=== PATIENT | female | born 1960 | race Caucasian/White ===

== ENCOUNTER 2019-04-03 11:52 | Emergency (ER) | payer OTHER ==
[2019-04-03 11:58] VITALS: BMI 31.8
[2019-04-03] MEDS ORDERED: FAMOTIDINE 20 MG/50 ML IVPB 20 MG/50 ML MG IVPB ONE ×2 (14:31→15:06)
[2019-04-03] MEDS ORDERED: ACETAMINOPHEN 1000 MG/100 ML VIAL (NON FORMULARY) IVPB ONE (14:31)
[2019-04-03] MEDS ORDERED: SODIUM CHLORIDE 0.9% 1000 ML INFUS.BAG IV ONE (14:31)
--- NOTE | 2019-04-03 14:43 | PDOC ---
History of Present Illness - General Chief Complaint: Pain Stated Complaint: ABD PAIN Time Seen by Provider: 04/03/19 13:11 History Source: Patient Exam Limitations: No Limitations - History of Present Illness Initial Comments: 04/03/19 14:37 59F with a PMH of GERD, hypothyroidism, HTN, COPD, HLD, DM2 who presents to the ER with complaints of abdominal pain. The patient describes 4 days of constant, diffuse, atraumatic, without radiation to her back or chest, without exacerbating or alleviating factors. She denies nausea, vomiting, dysuria, hematuria, melena, hematochezia, fevers, and chills. Past History - Past Medical History Allergies/Adverse Reactions: Allergies Allergy/AdvReac Type Severity Reaction Status Date / Time No Known Allergies Allergy Verified 04/03/19 11:58 Home Medications: Ambulatory Orders Atorvastatin Ca [Lipitor] 20 mg PO HS 08/11/14 Baclofen 10 mg PO BID 08/11/14 Lansoprazole [Prevacid -] 30 mg PO DAILY 08/11/14 Naproxen [Naprosyn -] 500 mg PO BID 08/11/14 Ibuprofen [Motrin -] 600 mg PO Q8H #15 tablet 08/13/14 Levothyroxine [Synthroid -] 50 mcg PO DAILY@0700 #30 tablet 08/13/14 COPD: Yes Diabetes: Yes (diet controlled dm) GI Disorders: Yes (stomach ulcers) HTN: Yes Hypercholesterolemia: Yes Thyroid Disease: Yes (hypo) - Surgical History Cardiac Surgery: Yes (cardiac cath 06/13/12/leaky valve) - Immunization History Immunization Up to Date: No - Suicide/Smoking/Psychosocial Hx Smoking Status: No Smoking History: Never smoked Have you smoked in the past 12 months: No Number of Cigarettes Smoked Daily: 0 Information on smoking cessation initiated: No Hx Alcohol Use: No Drug/Substance Use Hx: No Substance Use Type: None Hx Substance Use Treatment: No Review of Systems - Review of Systems Able to Perform ROS?: Yes Comments:: 04/03/19 14:44 GENERAL/CONSTITUTIONAL: No fever or chills. No weakness. HEAD, EYES, EARS, NOSE AND THROAT: No change in vision. No ear pain or discharge. No sore throat. CARDIOVASCULAR: No chest pain, palpitations, or lightheadedness. RESPIRATORY: No cough, wheezing, shortness of breath, or hemoptysis. GASTROINTESTINAL: + for abdominal pain. No nausea, vomiting, diarrhea, or constipation. GENITOURINARY: No dysuria, frequency, hematuria, or change in urination. MUSCULOSKELETAL: No joint or muscle swelling or pain. No neck or back pain. SKIN: No rash or lesions. NEUROLOGIC: No headache, numbness, tingling, focal weakness, loss of consciousness, or change in strength/sensation. Is the patient limited Danish proficient: No *Physical Exam - Vital Signs Last Vital Signs Temp Pulse Resp BP Pulse Ox 98.4 F 60 17 127/67 100 04/03/19 11:56 04/03/19 11:56 04/03/19 11:56 04/03/19 11:56 04/03/19 11:56 - Physical Exam Comments: 04/03/19 14:44 GENERAL: Well developed, well nourished. Awake and alert. No acute distress. HEENT: Normocephalic, atraumatic. Hearing grossly normal. Moist mucous membranes. PERRLA, EOMI. No conjunctival pallor. Sclera are non-icteric. NECK: Supple. Full ROM. No JVD. CARDIOVASCULAR: Regular rate and rhythm. No murmurs, rubs, or gallops. PULMONARY: No evidence of respiratory distress. Lungs clear to auscultation bilaterally. No wheezing, rales or rhonchi. ABDOMINAL: Soft. Diffusely tender with guarding in LUQ. Non-distended. GENITOURINARY: No CVA tenderness bilaterally. MUSCULOSKELETAL: Normal range of motion at all joints. No bony deformities or tenderness. EXTREMITIES: No cyanosis. No clubbing. No edema. No calf tenderness or swelling. SKIN: Warm and dry. Normal capillary refill. No rashes. No jaundice. NEUROLOGICAL: Alert, awake, appropriate. Cranial nerves 2-12 intact. Normal speech. Gait is normal without ataxia. PSYCHIATRIC: Cooperative. Good eye contact. Appropriate mood and affect. ED Treatment Course - LABORATORY CBC & Chemistry Diagram: 04/03/19 15:00 04/03/19 15:00 - RADIOLOGY Radiology Studies Ordered: Category Date Time Status ABDOMEN & PELVIS CT WITH CONTR [CT] Stat CT Scan 04/03/19 14:27 Ordered CHEST PA & LAT [RAD] Stat Radiology 04/03/19 14:25 Ordered Medical Decision Making - Medical Decision Making 04/03/19 14:45 59F with MMP presents with 4 days of abdominal pain with guarding on exam. Will obtain labs, EKG, CXR, and CTAP. Giving symptomatic treatment for possible GERD as pt states "this feels like my GERD but much worse". Pt having normal BM's and last BM this morning. Pt has hx of appendectomy and cholecystectomy. Well appearing otherwise. Pending labs and imaging. 04/03/19 19:28 CTAP and labs WNL and shows no acute pathology. Repeat abdominal exam unremarkable. Will d/c with PCP f/u. *DC/Admit/Observation/Transfer Diagnosis at time of Disposition: Abdominal pain Qualifiers: Abdominal location: generalized Qualified Code(s): R10.84 - Generalized abdominal pain - Discharge Dispostion Disposition: HOME Condition at time of disposition: Stable Decision to Admit order: No - Referrals Referrals: Alka Gomez MD [Primary Care Provider] - - Patient Instructions Printed Discharge Instructions: DI for Abdominal Pain-Adult Additional Instructions: Your ER visit is not complete until your follow up with your primary care physician. Please follow up with your primary care physician in 1-2 days. Please return to the ER if you have any signs or symptoms of chest pain, shortness of breath, uncontrollable fever, chills, nausea, vomiting, numbness, tingling, or weakness in any part of your body, changes in vision, or slurred speech. Please take your medications as prescribed. Please return to the ER if symptoms persist, worsen, or new symptoms arise. - Post Discharge Activity
[2019-04-03] MEDS ORDERED: ACETAMINOPHEN INJECTION 100 ML IVPB ONE (15:06)
[2019-04-03 15:21] LABS: BASO % 1.1 % (0-2.0); EOS % 3.9 % (0-4.5); HEMOGLOBIN 11.8 GM/dL (10.7-15.3); LYMPH % 34.2 % (8-40); MCH 30.6 pg (25.7-33.7); MCHC 33.8 g/dl (32.0-36.0); MEAN CELL VOLUME 90.4 fl (80-96); MEAN PLT VOLUME 8.2 fl (7.5-11.1); MONO % 7.9 % (3.8-10.2); NEUT % 52.9 % (42.8-82.8); PLATELET COUNT 305 K/MM3 (134-434); RBC 3.87 M/mm3 (3.60-5.2); WHITE BLOOD COUNT 5.9 K/mm3 (4.0-10.0)
[2019-04-03 15:23] LABS: INR 0.95 (0.83-1.09); PROTHROMBIN TIME (PATIENT) 11.2 SEC (9.7-13.0)
[2019-04-03 15:43] LABS: ALK PHOS 67 U/L (45-117); ANION GAP 6 MMOL/L (8-16); BILIRUBIN,TOTAL 0.4 mg/dL (0.2-1); BLOOD UREA NITROGEN 15.4 mg/dL (7-18); CALCIUM 9.3 mg/dL (8.5-10.1); CHLORIDE 110 mmol/L (98-107); CO2 26 mmol/L (21-32); CREATININE 0.9 mg/dL (0.55-1.3); GLUCOSE,RANDOM 83 mg/dL (74-106); LIPASE 169 U/L (73-393); POTASSIUM 4.5 mmol/L (3.5-5.1); SGOT/AST 25 U/L (15-37); SGPT/ALT 23 U/L (13-61); SODIUM 142 mmol/L (136-145); TOT PROT 7.4 g/dl (6.4-8.2)
[2019-04-03 16:18] LABS: URINE APPEARANCE CLEAR; URINE BILIRUBIN NEGATIVE (NEGATIVE); URINE COLOR YELLOW; URINE GLUCOSE (UA) NEGATIVE (NEGATIVE); URINE KETONE NEGATIVE (NEGATIVE); URINE LEUK ESTERASE NEGATIVE (NEGATIVE); URINE NITRITE NEGATIVE (NEGATIVE); URINE PROTEIN NEGATIVE (NEGATIVE); URINE UROBILINOGEN 0.2 mg/dL (0.2-1.0)
--- NOTE | 2019-04-03 16:39 | PDOC ---
Documentation entered by Gisele Martinez SCRIBE, acting as scribe for Joann Mullins MD. Joann Mullins MD: This documentation has been prepared by the Juan valdes Brenda, SCRIBE, under my direction and personally reviewed by me in its entirety. I confirm that the documentation accurately reflects all work, treatment, procedures, and medical decision making performed by me. Attending Attestation - Resident Resident Name: CheryleKoko - ED Attending Attestation I have performed the following: I have examined & evaluated the patient, The case was reviewed & discussed with the resident, I agree w/resident's findings & plan, Exceptions are as noted - HPI HPI: 04/03/19 16:03 The patient is a 59 year old female, with a significant PMH of GERD, hypothyroidism, HTN, COPD, HLD and DM2, who presents to the emergency department with 4 days of constant diffuse abdominal pain. The patient reports not alleviating or aggravating factors, without any radiation. She denies nausea, vomiting, dysuria, hematuria, melena, hematochezia, fevers, and chills. Denies fever, chills, nausea, vomiting, diarrhea and constipation. Allergies: NKA Social history: Non smoker PCP: Dr. Laura Gomez - Physicial Exam PE: 04/03/19 16:03 GENERAL: Awake, alert, and fully oriented, in no acute distress ABDOMEN: Soft, nontender, normoactive bowel sounds. No guarding, no rebound. No masses - Medical Decision Making 04/03/19 16:36 Pt presents to the ED complaining of diffuse abdominal pain. ABdomen is non tender on my exam, but given patients age, will check CT abdomen pelvis to rule out diverticulitis, abscess or other intraabdominal pathology.
[2019-04-03 18:57] VITALS: BP 140/99; PULSE 50; TEMP 98.8
--- NOTE | 2019-04-04 12:07 | EKG ---
Test Reason : Blood Pressure : / mmHG Vent. Rate : 050 BPM Atrial Rate : 050 BPM P-R Int : 190 ms QRS Dur : 090 ms QT Int : 486 ms P-R-T Axes : 037 033 059 degrees QTc Int : 443 ms SINUS BRADYCARDIA OTHERWISE NORMAL ECG WHEN COMPARED WITH ECG OF 11-AUG-2014 22:21, VENT. RATE HAS DECREASED BY 25 BPM RSR' PATTERN IN V1 IS NO LONGER PRESENT Confirmed by Jordi Perez ([id number]) on 04/04/2019 12:07:17 PM Referred By: Confirmed By:Jordi Perez
== END 2019-04-03 19:47 | disposition home or self-care (01) ==
LOC: JER 11:52
PROC: 3E033GC Introduction of Other Therapeutic Substance into Peripheral Vein, Percutaneous Approach (ICD-10-PCS; principal; 2019-04-03)
PROC: 3E033NZ Introduction of Analgesics, Hypnotics, Sedatives into Peripheral Vein, Percutaneous Approach (ICD-10-PCS; 2019-04-03)
DX: R10.84 Generalized abdominal pain (principal); I10 Essential (primary) hypertension; E11.9 Type 2 diabetes mellitus without complications; Z79.84 Long term (current) use of oral hypoglycemic drugs; E03.9 Hypothyroidism, unspecified; J44.9 Chronic obstructive pulmonary disease, unspecified; E78.5 Hyperlipidemia, unspecified
CPT/HCPCS: 36415; 74177-TC; 80053; 81003; 82550; 82553; 83690; 84484; 85025; 85610; 87086; 87186; 93005; 93010; 96365; 96375; 99282-25; J0131; J7030

== ENCOUNTER 2019-06-28 11:13 | Inpatient (IN) | payer OTHER ==
[2019-06-28] MEDS ORDERED: NITROGLYCERIN SUBLINGUAL 1/150 0.4 MG TAB SL ONE (12:02)
[2019-06-28] MEDS ORDERED: ASPIRIN 81 MG CHEWABLE TABLETS PO ONE (12:02)
[2019-06-28] MEDS ORDERED: ASPIRIN 81 MG CHEWABLE TABLETS ONE ×2 (12:11→17:15)
[2019-06-28] MEDS ORDERED: NITROGLYCERIN SUBLINGUAL 1/150 0.4 MG TAB ONE (12:12)
[2019-06-28 12:36] LABS: BASO % 0.9 % (0-2.0); EOS % 7.3 % (0-4.5); HEMATOCRIT 33.1 % (32.4-45.2); HEMOGLOBIN 11.1 GM/dL (10.7-15.3); LYMPH % 35.2 % (8-40); MCH 30.1 pg (25.7-33.7); MCHC 33.5 g/dl (32.0-36.0); MEAN CELL VOLUME 89.8 fl (80-96); MONO % 10.6 % (3.8-10.2); PLATELET COUNT 271 K/MM3 (134-434); RBC 3.69 M/mm3 (3.60-5.2); RDW 12.8 % (11.6-15.6); WHITE BLOOD COUNT 4.6 K/mm3 (4.0-10.0)
[2019-06-28 13:07] LABS: ALBUMIN 3.8 g/dl (3.4-5.0); BILIRUBIN,TOTAL 0.4 mg/dL (0.2-1); BLOOD UREA NITROGEN 19.1 mg/dL (7-18); CALCIUM 8.9 mg/dL (8.5-10.1); CREATININE 1.2 mg/dL (0.55-1.3); POTASSIUM 4.1 mmol/L (3.5-5.1); TOT PROT 6.7 g/dl (6.4-8.2)
[2019-06-28] MEDS ORDERED: NITROGLYCERIN 2% OINTMENT - 1GM PACKET TD ONE ×2 (14:19→14:24)
[2019-06-28] MEDS ORDERED: ACETAMINOPHEN 1000 MG/100 ML VIAL (NON FORMULARY) IVPB ONE (14:19)
[2019-06-28] MEDS ORDERED: ACETAMINOPHEN INJECTION 100 ML IVPB ONE (14:24)
--- NOTE | 2019-06-28 14:31 | EKG ---
Test Reason : Blood Pressure : / mmHG Vent. Rate : 071 BPM Atrial Rate : 071 BPM P-R Int : 180 ms QRS Dur : 084 ms QT Int : 412 ms P-R-T Axes : 043 033 073 degrees QTc Int : 447 ms NORMAL SINUS RHYTHM T WAVE ABNORMALITY, CONSIDER ANTERIOR ISCHEMIA ABNORMAL ECG WHEN COMPARED WITH ECG OF 03-APR-2019 14:58, T WAVE INVERSION NOW EVIDENT IN ANTERIOR LEADS Confirmed by SHANTEL BROWN, PATI ([id number]) on 06/28/2019 2:31:33 PM Referred By: Confirmed By:PATI FUNES MD
--- NOTE | 2019-06-28 15:43 | PDOC ---
Documentation entered by Manda Vela SCRIBE, acting as scribe for Twan Guerrero MD. Twan Guerrero MD: This documentation has been prepared by the Dane valdes Sammi, SCRIBE, under my direction and personally reviewed by me in its entirety. I confirm that the documentation accurately reflects all work, treatment, procedures, and medical decision making performed by me. History of Present Illness - General Chief Complaint: Chest Pain Stated Complaint: CHEST PAIN Time Seen by Provider: 06/28/19 11:50 - History of Present Illness Initial Comments: 06/28/19 12:30 The patient is a 59 year old female who presents for evaluation of 3 days of non pleuritic chest pain, tightness with mild stabbing in character, constant, 07/06, with associated with minimal SOB, dizziness, and chronic bilateral lower extremity pain. Denies exacerbating or alleviating factors. Medical history: ND (on aspirin), hypothyroidism PCP: Alka Gomez 06/28/19 15:25 Past History - Past Medical History Allergies/Adverse Reactions: Allergies Allergy/AdvReac Type Severity Reaction Status Date / Time No Known Allergies Allergy Verified 06/28/19 11:22 Home Medications: Ambulatory Orders Atorvastatin Ca [Lipitor] 20 mg PO HS 08/11/14 Lansoprazole [Prevacid -] 30 mg PO DAILY 08/11/14 Levothyroxine [Synthroid -] 200 mcg PO DAILY@0700 06/28/19 COPD: Yes Diabetes: Yes (diet controlled dm) GI Disorders: Yes (stomach ulcers) HTN: Yes Hypercholesterolemia: Yes Thyroid Disease: Yes (hypo) - Surgical History Cardiac Surgery: Yes (cardiac cath 06/13/12/leaky valve) - Immunization History Immunization Up to Date: No - Psycho Social/Smoking Cessation Hx Smoking Status: No Smoking History: Never smoked Have you smoked in the past 12 months: No Number of Cigarettes Smoked Daily: 0 Information on smoking cessation initiated: No Hx Alcohol Use: No Drug/Substance Use Hx: No Substance Use Type: None Hx Substance Use Treatment: No Review of Systems - Review of Systems Comments:: 06/28/19 12:31 CONSTITUTIONAL: +Dizziness. No fever, no chills, no fatigue EYES: No visual changes ENT: No ear pain, no sore throat CARDIOVASCULAR: + pleuritic chest pain, no palpitations RESPIRATORY: +SOB. No cough. GI: No abdominal pain, no nausea, no vomiting, no constipation, no diarrhea GENITOURINARY: No dysuria, no frequency, no hematuria MUSKULOSKELETAL: +bilateral lower extremity pain. No backpain. SKIN: No rash NEURO: No headache *Physical Exam - Vital Signs Last Vital Signs Temp Pulse Resp BP Pulse Ox 98.4 F 53 L 13 128/67 97 06/28/19 11:15 06/28/19 14:30 06/28/19 14:30 06/28/19 14:30 06/28/19 14:30 - Physical Exam Comments: 06/28/19 15:00 CONSTITUTIONAL: Well-appearing; well-nourished; in no apparent distress HEAD: Normocephalic; atraumatic NECK: Supple; non-tender; no cervical lymphadenopathy CARD: Normal S1, S2; no murmurs, rubs, or gallops RESP: Normal chest excursion with respiration; breath sounds clear and equal bilaterally; no wheezes, rhonchi, or rales ABD: Soft, non-distended; non-tender; no palpable organomegaly, no palpable hernias EXT: Normal ROM in all four extremities; non-tender to palpation; distal pulses intact SKIN: Warm, dry, no rash NEURO: No focal neurological deficiencies. Heart Score/ECG Review - History History: Moderately suspicious - Electrocardiogram EKG: Non specific repolarization disturbance - Age Age: 45-65 - Risk Factors Risk Factors Heart Score: Yes Hx Hypercholesterolemia, Yes Hx Obesity Based on the list above the patient has:: 1-2 risk factors - Troponin Troponin: </= normal limit - Score Heart Score - Total: 4 ED Treatment Course - LABORATORY CBC & Chemistry Diagram: 06/28/19 12:25 06/28/19 12:25 - ADDITIONAL ORDERS Additional order review: Laboratory Results 06/28/19 06/28/19 06/28/19 12:25 12:25 12:25 D-Dimer 400 Sodium 142 Potassium 4.1 Chloride 111 H Carbon Dioxide 24 Anion Gap 7 L BUN 19.1 H Creatinine 1.2 Est GFR (CKD-EPI)AfAm 56.89 Est GFR (CKD-EPI)NonAf 49.08 Random Glucose 90 Calcium 8.9 Total Bilirubin 0.4 AST 10 L ALT 15 Alkaline Phosphatase 67 Creatine Kinase 247 H Creatine Kinase Index No Result Required. CK-MB (CK-2) < 1.0 Troponin I < 0.02 Total Protein 6.7 Albumin 3.8 06/28/19 12:25 RBC 3.69 MCV 89.8 MCHC 33.5 RDW 12.8 MPV 8.0 Neutrophils % 46.0 Lymphocytes % 35.2 Monocytes % 10.6 H Eosinophils % 7.3 H D Basophils % 0.9 - RADIOLOGY Radiology Studies Ordered: Category Date Time Status CHEST X-RAY PORTABLE* [RAD] Stat Radiology 06/28/19 12:02 Completed - Medications Given in the ED: ED Medications Discontinued Medications Generic Name Dose Route Start Last Admin Trade Name Freq PRN Reason Stop Dose Admin Acetaminophen 1,000 mg 06/28/19 14:19 06/28/19 14:30 Ofirmev Injection - IVPB 06/28/19 14:20 1,000 mg ONCE ONE Administration Aspirin 162 mg 06/28/19 12:02 06/28/19 12:16 Asa - PO 06/28/19 12:03 162 mg ONCE ONE Administration Nitroglycerin 0.4 mg 06/28/19 12:02 06/28/19 12:16 Nitrostat - SL 06/28/19 12:03 0.4 mg ONCE ONE Administration Nitroglycerin 1 inch 06/28/19 14:19 06/28/19 14:30 Nitro-Bid 2% Paste - TD 06/28/19 14:20 1 inch ONCE ONE Administration Medical Decision Making - Medical Decision Making 06/28/19 15:42 Patient is a 59-year-old female with history of hypercholesterolemia and hypothyroidism who presents to the ER with constant left-sided nonpleuritic chest pain for the past 3 days with weakness and dizziness. Patient's vital signs are noted to be normal and stable. Initial EKG shows diffuse T wave inversions in precordial leads when compared to previous EKG from March 2019. Repeat EKG shows pseudonormalization of T waves in V4 and V5. Patient's chest pain was minimally improved by sublingual nitroglycerin. Will administer transdermal nitroglycerin and IV acetaminophen. CPK is noted to be elevated however troponin is negative at this time. Patient's heart score is noted to be 4. Patient received p.o. aspirin in addition to nitroglycerin. Will admit to telemetry for further evaluation. Discharge - Discharge Information Problems reviewed: Yes Clinical Impression/Diagnosis: Acute coronary syndrome Condition: Fair - Admission Yes - Follow up/Referral Referrals: Alka Gomez MD [Primary Care Provider] - - Patient Discharge Instructions - Post Discharge Activity
[2019-06-28] MEDS: PANTOPRAZOLE 40 MG TABLET (FP) PO SCH (17:15)
[2019-06-28] MEDS: ASPIRIN COATED 81 MG TABLET.EC PO SCH (17:15)
[2019-06-28] MEDS ORDERED: PANTOPRAZOLE 40 MG TABLET (FP) ONE (17:16)
--- NOTE | 2019-06-28 17:20 | PN ---
Teaching Attending Note Name of Resident: Lisa Husain ATTENDING PHYSICIAN STATEMENT I saw and evaluated the patient. I reviewed the resident's note and discussed the case with the resident. I agree with the resident's findings and plan as documented. SUBJECTIVE: CC: CP HPI : 59 y/o lady with h/o HTN ( not on meds), hypothyroidism, thyroid sx , DM ( off meds ), reported CO 10 years ago, no stents , HLP ( off meds ) , who presented with CP x 3 days . CP is retrosternal, continuous and 8/10 in severity. Worse with breathing, exertion and any activity and even with bending down. hard to describe ( pressure vs sharp). with exertion her CP is associated with SOB and dizziness. last stress test and Echo were 1 months ago at her card office ( she thinks dr. Brambila). she admits to taking aspirin but she stopped statin on her own . Not on BP meds . No recent travel or immobilization or sx OBJECTIVE: NAd , MMM. no LAP in neck . scar on lower neck Cv : RRr, 2/6 Sm at LLSB Lungs: CTAB Abd: soft, NT, Nd , NLBS Ext : No edema or erythema , no tenderness neuro : EOMI, round equal pupils, no facial droop. tongue at mid line. strength 5/5 in upper and lower extremities proximally and distally ASSESSMENT AND PLAN: 1- CP : unclear etiology, doubt ACS as it is continuous for 3 days with nL trop. EKG though with new TWI in septal leads. in DDx is GERD PE is not suspected as WEELS scor is 0,D dimer < 500, and clinical suspicion is low ( no travel, old RBBB, no S1T3Q3, no tachycardia or hypoxia). - repeat trops - tele - card consult - PPI - will obtain stressa nd echo fromout pt card ( 1 months ago) - cont ASA - order lipid panel for am 2- h/o hypothyroidism: cont her synthroid 3- h/o HLP: chec lipid panel. not on any meds DVT PX : heaprin
--- NOTE | 2019-06-28 17:29 | HP ---
CHIEF COMPLAINT: Chest Pain PCP: Dr. oGmez Epic Application Coordinator: Dr. Brambila HISTORY OF PRESENT ILLNESS: Ms. Ta is a 59 year old lady with a reported pmhx of gastric ulcer, hypothyroidism, and OR (~10 years ago, denies being placed on any medication, denies cath, denies stent placement) who presents to the ED with 3 days of chest pains. The patient states the pain is always present but worse with exertion and inspiration. It is also associated with postural dizziness. The pain has been ongoing for 3 days and the patient reports nothing makes it better. The patient reports that she had a stress test and echo with her program management manager last month and that both were normal. The patient denies and abdominal pain, nausea, vomiting, dysuria, sensory changes, or changes in hearing ER course was notable for: (1) EKG with new TWI in leads V2,V3,V4 compared to old EKG in March. 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 (2) nitro paste admin with minimal relief (3) trop - (x1) Recent Travel: denies PAST MEDICAL HISTORY: Hypothyroidism, gastric ulcer (per chart review patient also has HTN, HLD, COPD, and DM however patient denies carrying these diagnoses and doesn't take any medicines for them) PAST SURGICAL HISTORY: appendectomy and cholecystectomy ~3 years ago, "thyroid surgery"- patient did not elaborate Social History: Smoking: denies Alcohol: denies Drugs: denies Allergies No Known Allergies Allergy (Verified 06/28/19 11:22) HOME MEDICATIONS: Home Medications Medication Instructions Recorded Atorvastatin Ca [Lipitor] 20 mg PO HS 08/11/14 Lansoprazole [Prevacid -] 30 mg PO DAILY 08/11/14 Levothyroxine [Synthroid -] 200 mcg PO DAILY@0700 06/28/19 Pantoprazole Sodium 40 mg PO BID 06/28/19 Spironolactone 12.5 mg PO AM 06/28/19 REVIEW OF SYSTEMS CONSTITUTIONAL: Absent: fever, chills, diaphoresis, generalized weakness, malaise, loss of appetite, weight change HEENT: change in vision (blacking out) associated with dizzy episodes Absent: rhinorrhea, nasal congestion, throat pain, throat swelling, difficulty swallowing, mouth swelling, ear pain, eye pain, visual changes CARDIOVASCULAR: chest pain, lightheadedness Absent: syncope, palpitations, irregular heart rate, peripheral edema RESPIRATORY: , dyspnea with exertion, Absent: cough, shortness of breathorthopnea, wheezing, stridor, hemoptysis GASTROINTESTINAL: Absent: abdominal pain, abdominal distension, nausea, vomiting, diarrhea, constipation, melena, hematochezia GENITOURINARY: Absent: dysuria, frequency, urgency, hesitancy, hematuria, flank pain, genital pain MUSCULOSKELETAL: Absent: myalgia, arthralgia, joint swelling, back pain, neck pain SKIN: Absent: rash, itching, pallor HEMATOLOGIC/IMMUNOLOGIC: Absent: easy bleeding, easy bruising, lymphadenopathy, frequent infections ENDOCRINE: Absent: unexplained weight gain, unexplained weight loss, heat intolerance, cold intolerance NEUROLOGIC: dizziness, Absent: headache, focal weakness or paresthesias, unsteady gait, seizure, mental status changes, bladder or bowel incontinence PSYCHIATRIC: Absent: anxiety, depression, suicidal or homicidal ideation, hallucinations. PHYSICAL EXAMINATION Vital Signs - 24 hr 06/28/19 06/28/19 06/28/19 11:15 11:45 12:16 Temperature 98.4 F Pulse Rate 76 Pulse Rate [ 62 Apical] Respiratory 18 13 Rate Blood Pressure 110/62 Blood Pressure 122/64 [Left Arm] O2 Sat by Pulse 96 98 96 Oximetry (%) 06/28/19 06/28/19 06/28/19 12:28 12:56 14:30 Temperature Pulse Rate Pulse Rate [ 57 L 61 53 L Apical] Respiratory 17 17 13 Rate Blood Pressure Blood Pressure 109/68 107/70 128/67 [Left Arm] O2 Sat by Pulse 99 99 97 Oximetry (%) GENERAL: Awake, alert, and fully oriented, in no acute distress. HEAD: Normal with no signs of trauma. EYES: Pupils equal, round and reactive to light, extraocular movements intact, sclera anicteric, conjunctiva clear. No lid lag. EARS, NOSE, THROAT: Ears normal, nares patent, oropharynx clear without exudates. Moist mucous membranes. NECK: Normal range of motion, supple without lymphadenopathy, JVD, or masses. LUNGS: Breath sounds equal, clear to auscultation bilaterally. No wheezes, and no crackles. No accessory muscle use. HEART: Bradycardic and regular rhythm, normal S1 and S2 without murmur, rub or gallop. ABDOMEN: Soft, tender to palpation in RLQ and suprapubic areas, not distended, normoactive bowel sounds, no guarding, no rebound, no masses. MUSCULOSKELETAL: Normal range of motion at all joints. No bony deformities or tenderness. No CVA tenderness. UPPER EXTREMITIES: 2+ pulses, warm, well-perfused. No cyanosis. No clubbing. No peripheral edema. 1+ brachial and radial reflexes bilaterally LOWER EXTREMITIES: 2+ pulses, warm, well-perfused. No calf tenderness. No peripheral edema. 1+ patellar and achilles reflexes bilaterally NEUROLOGICAL: Cranial nerves II-XII intact. Normal speech. PSYCHIATRIC: Cooperative. Good eye contact. Appropriate mood and affect. SKIN: Warm, dry, normal turgor, no rashes or lesions noted, normal capillary refill. Laboratory Results - last 24 hr 06/28/19 06/28/19 06/28/19 12:25 12:25 12:25 WBC 4.6 RBC 3.69 Hgb 11.1 Hct 33.1 MCV 89.8 MCH 30.1 MCHC 33.5 RDW 12.8 Plt Count 271 MPV 8.0 Absolute Neuts (auto) 2.1 Neutrophils % 46.0 Lymphocytes % 35.2 Monocytes % 10.6 H Eosinophils % 7.3 H D Basophils % 0.9 Nucleated RBC % 0 D-Dimer Sodium 142 Potassium 4.1 Chloride 111 H Carbon Dioxide 24 Anion Gap 7 L BUN 19.1 H Creatinine 1.2 Est GFR (CKD-EPI)AfAm 56.89 Est GFR (CKD-EPI)NonAf 49.08 Random Glucose 90 Calcium 8.9 Total Bilirubin 0.4 AST 10 L ALT 15 Alkaline Phosphatase 67 Creatine Kinase 247 H Creatine Kinase Index No Result Required. CK-MB (CK-2) < 1.0 Troponin I < 0.02 Total Protein 6.7 Albumin 3.8 06/28/19 12:25 WBC RBC Hgb Hct MCV MCH MCHC RDW Plt Count MPV Absolute Neuts (auto) Neutrophils % Lymphocytes % Monocytes % Eosinophils % Basophils % Nucleated RBC % D-Dimer 400 Sodium Potassium Chloride Carbon Dioxide Anion Gap BUN Creatinine Est GFR (CKD-EPI)AfAm Est GFR (CKD-EPI)NonAf Random Glucose Calcium Total Bilirubin AST ALT Alkaline Phosphatase Creatine Kinase Creatine Kinase Index CK-MB (CK-2) Troponin I Total Protein Albumin ASSESSMENT/PLAN: Ms. Ta is a 59 year old lady with a reported pmhx of gastric ulcer, hypothyroidism, and OR (~10 years ago, denies being placed on any medication, denies cath, denies stent placement) who presents to the ED with 3 days of chest pains. # Atypical Chest Pain - differential includes pain from GERD and PE. PE is unlikely given that patient has a Wells score of zero, no recent travel, no reasons for hypercoaguable state, not tachycardic, although patient does have RBB on EKG this is an old finding. - Trend troponins - lipid panel - F/u Dr. Brambila about recent stress test/ echo results - Cardiology consult, Dr. Brambila, appreciate recommendations - NPO after midnight incase patient needs new stress test tomorrow - Cont ASA 81mg daily #GERD - Protonix 40 daily #Hypothyroidism - Levothyroxine 200mcg daily #DM- per chart review patient carries this diagnosis but patient denies. BG 90 on admission - BGM ACHS with SSI - Will obtain A1C, and adjust management depending on results # FEN - PO fluids - Replete lytes prn - fat/ chol restricted diet, NPO at midnight # Dispo: admit to tele to monitor overnight, follow up with cardiology in AM Visit type - Emergency Visit Emergency Visit: Yes ED Registration Date: 06/28/19 Care time: The patient presented to the Emergency Department on the above date and was hospitalized for further evaluation of their emergent condition. - New Patient This patient is new to me today: Yes Date on this admission: 06/28/19 - Critical Care Critical Care patient: No ATTENDING PHYSICIAN STATEMENT I saw and evaluated the patient. I reviewed the resident's note and discussed the case with the resident. I agree with the resident's findings and plan as documented. SUBJECTIVE: OBJECTIVE: ASSESSMENT AND PLAN:
[2019-06-28] MEDS ORDERED: HEPARIN NA (PORCINE) 5,000 UNITS/ML 1ML VIAL ONE (22:29)
[2019-06-28] MEDS: HEPARIN NA (PORCINE) 5,000 UNITS/ML 1ML VIAL SQ SCH (22:40)
[2019-06-28] MEDS: INSULIN SLIDING SCALE (NOVOLOG) 1 VIAL SQ SCH (22:41)
[2019-06-29 00:17] VITALS: BMI 31.1
[2019-06-29 06:13] LABS: BASO % 0.8 % (0-2.0); EOS % 7.2 % (0-4.5); HEMATOCRIT 32.5 % (32.4-45.2); HEMOGLOBIN 11.2 GM/dL (10.7-15.3); LYMPH % 40.5 % (8-40); MCH 30.9 pg (25.7-33.7); MCHC 34.4 g/dl (32.0-36.0); MEAN CELL VOLUME 89.9 fl (80-96); MEAN PLT VOLUME 7.9 fl (7.5-11.1); MONO % 9.7 % (3.8-10.2); NEUT % 41.8 % (42.8-82.8); PLATELET COUNT 259 K/MM3 (134-434); RBC 3.61 M/mm3 (3.60-5.2); RDW 12.9 % (11.6-15.6); WHITE BLOOD COUNT 5.1 K/mm3 (4.0-10.0)
[2019-06-29] MEDS: INSULIN SLIDING SCALE (NOVOLOG) 1 VIAL SQ SCH ×3 (06:40→17:09)
[2019-06-29 06:41] LABS: PHOSPHOROUS 3.9 mg/dL (2.5-4.9)
[2019-06-29] MEDS: HEPARIN NA (PORCINE) 5,000 UNITS/ML 1ML VIAL SQ SCH ×2 (06:41→13:01)
[2019-06-29] MEDS ORDERED: LEVOTHYROXINE NA 100 MCG TABLET (FP) PO SCH (07:00)
--- NOTE | 2019-06-29 10:04 | CON.CARD ---
Consult Consult Specialty:: cardio - History of Present Illness Chief Complaint: cp History of Present Illness: 59 F here with CP. pt has chronic h/o REYEZ with assctd chest tightness. presented originally to hospital in [place] for this few years ago--nuclear stress test then normal. more recently incr in sx's for which she's been seeing me in office. echo unrevealing--possibly elevated LA pressure stress echo unrevealing. also with very hi TSH that has not improved as of 1-2 wks ago--dr hill incr 'd synthroid dose last week. PFTs were unremarkable recently. given trial of spironolactone 12.5 qd for ? early diast CHF as cause of her REYEZ- -started about 1 week ago states that the past several days her REYEZ and assctd cp have worsened. typically occurring with activity--usually (not always) resolves quickly with rest. more severe CP (same quality) on DOA so came to ER. assctd dizziness. no cp or sob here so far. felt dizzy when oob to walk to bathroom earlier. PMH: HPL - Past Medical History Cardio/Vascular: Yes: HTN, Hyperlipdemia Pulmonary: Yes: COPD Endocrine: Yes: Diabetes Mellitus - Alcohol/Substance Use Hx Alcohol Use: No History of Substance Use: reports: None - Smoking History Smoking history: Never smoked Have you smoked in the past 12 months: No Aproximately how many cigarettes per day: 0 - Social History ADL: Independent History of Recent Travel: No Home Medications - Allergies Allergies/Adverse Reactions: Allergies Allergy/AdvReac Type Severity Reaction Status Date / Time No Known Allergies Allergy Verified 06/28/19 11:22 - Home Medications Home Medications: Ambulatory Orders Lansoprazole [Prevacid -] 30 mg PO DAILY 08/11/14 Aspirin [Aspirin EC] 81 mg PO DAILY 06/28/19 Levothyroxine [Synthroid -] 200 mcg PO DAILY@0700 06/28/19 Family Medical History Family Hx Cardiac Disorders: Father Review of Systems - Review of Systems Constitutional: denies: Chills, Fever Eyes: denies: Eye Pain HENT: denies: Nasal Congestion Neck: denies: Stiffness Cardiovascular: denies: Palpitations Respiratory: denies: Orthopnea, PND Gastrointestinal: denies: Diarrhea, Rectal Bleeding Genitourinary: denies: Burning, Hematuria Musculoskeletal: denies: Muscle Pain Integumentary: denies: Rash Neurological: denies: Numbness, Seizure, Syncope Endocrine: denies: Excessive Sweating Hematology/Lymphatic: denies: Excessive Bleeding Vital Signs: Vital Signs Temperature 98.5 F 06/29/19 04:00 Pulse Rate 46 L 06/29/19 04:00 Respiratory Rate 20 06/29/19 04:00 Blood Pressure 110/51 L 06/29/19 04:00 O2 Sat by Pulse Oximetry (%) 98 06/29/19 00:22 Constitutional: Yes: Well Nourished, No Distress Eyes: No: Sclera Icterus HENT: No: Nasal Congestion Neck: No: Decreased ROM Respiratory: Yes: CTA Bilaterally. No: Accessory Muscle Use Gastrointestinal: Yes: Normal Bowel Sounds. No: Distention, Hepatomegaly, Palpable Mass, Tenderness Cardiovascular: Yes: Regular Rate and Rhythm JVD: No Carotid Bruit: No PMI: Non-Displaced Heart Sounds: Yes: S1, S2. No: Gallop Murmur: No: Systolic Murmur, Diastolic Murmur Musculoskeletal: Yes: Other (No kyphosis) Extremities: No: Cool, Cyanosis Edema: No Peripheral Pulses: 2+ Left Carotid, 2+ Right Carotid, 2+ Left Doralis Pedis, 2+ Right Dorsalis Pedis Integumentary: No: Jaundice Neurological: Yes: Alert, Oriented (x3) Psychiatric: No: Agitated - Other Data Labs, Other Data: CBC, BMP 06/29/19 05:45 06/28/19 12:25 Troponin, BNP 06/28/19 06/28/19 12:25 18:20 Troponin I < 0.02 < 0.02 Troponin, BNP 06/28/19 06/28/19 12:25 18:20 Troponin I < 0.02 < 0.02 Assessment/Plan Stress Echo 04/2019: 6 min-->manual for 8 min (9 METs). no STs. no echo ischemia. moderate MR post-exercise, no RVSP. Echo 04/14: nl LVEF. probably hi LAP. RV upper normal size with normal fxn. mod LAE. mod MR, mild-mod TR. no RVSP ECG x 2: NSR, nonsp ST-Ts diffusely = no signif change vs office ecg of 01/2019 ( no change from ecg #1 to 2 here) CXR: clear lungs/pleura tele: NSR chest pain and sob with exertion = ? unstable angina: -chronic sx, prior MPI neg 2017, recent outpt stress echo negative -trop neg x 2, ECG no signif change in baseline nonspecific abnormalities -however pt's risk of obstructive CAD is increased by dx of familial hypercholesterolemia, and sx's remain anginal in nature -rec left and right heart cath for definitive evaluation, she agrees. sob, ? sec to diast dysfunction: -probably elevated filling pressures on echo, no volume on exam in office with BNP 20s. -spirono 12.5 started as outpt one week ago, labs stable here--cont same for now (though not helping sx's) -await pressures at time of RHC when has cor angiogram HPL, likely familial hypercholesterolemia: -baseline LDL 220, father h/o early VT 49 (fatal) -LDL 150s here -cont home atorva 40. suspect some component of LDL elevation on basis of uncontrolled hypothyroidism (TSH 60)--will reassess lipids once euthyroid and plan to titrate statin as indicated at that time hypothyroid: -per hospitalist
[2019-06-29 10:19] VITALS: TEMP 98.6
--- NOTE | 2019-06-29 11:57 | PN ---
Teaching Attending Note Name of Resident: Lisa Husain ATTENDING PHYSICIAN STATEMENT I saw and evaluated the patient. I reviewed the resident's note and discussed the case with the resident. I agree with the resident's findings and plan as documented. SUBJECTIVE: No fever or chills. CP resolved. has no abd pain or SOB . reprots dizziness ( spinning ) with moving in bed, and with standing. No weakness, numbness, tingling, or change in vision OBJECTIVE: NAd , MMM. Cv : RRR, 2/6 SM at LUSB and RUSB Lungs: CTAB Ext: No edema or erythema , no tenderness ASSESSMENT AND PLAN: 1- CP: resolved. Appreciate card input - to be transferred for cath - tele with no events - cont ASA and start statin given her LDL 2- h/o hypothyroidism: cont her synthroid. check TSH 3- h/o HLP: start statin 4- Possible chronic diastolic heart failure : pa DVT PX : heparin. Pending transfer for cath
[2019-06-29] MEDS ORDERED: SPIRONOLACTONE 25 MG TABLET (FP) PO SCH (12:00)
--- NOTE | 2019-06-29 12:46 | PN ---
Physical Exam: SUBJECTIVE: Patient seen and examined OBJECTIVE: Vital Signs Period Temp Pulse Resp BP Sys/Chaudhry Pulse Ox Last 24 Hr 98.1 F-98.6 F 46-62 13-20 107-134/51-76 97-100 GENERAL: The patient is awake, alert, and fully oriented, in no acute distress. HEAD: Normal with no signs of trauma. EYES: PERRL, extraocular movements intact, sclera anicteric, conjunctiva clear. No ptosis. ENT: Ears normal, nares patent, oropharynx clear without exudates, moist mucous membranes. NECK: Trachea midline, full range of motion, supple. LUNGS: Breath sounds equal, clear to auscultation bilaterally, no wheezes, no crackles, no accessory muscle use. HEART: Regular rate and rhythm, S1, S2 without murmur, rub or gallop. ABDOMEN: Soft, nontender, nondistended, normoactive bowel sounds, no guarding, no rebound, no hepatosplenomegaly, no masses. EXTREMITIES: 2+ pulses, warm, well-perfused, no edema. NEUROLOGICAL: Cranial nerves II through XII grossly intact. Normal speech, gait not observed. PSYCH: Normal mood, normal affect. SKIN: Warm, dry, normal turgor, no rashes or lesions noted Laboratory Results - last 24 hr 06/28/19 06/28/19 06/28/19 12:25 12:25 12:25 WBC RBC Hgb Hct MCV MCH MCHC RDW Plt Count MPV Absolute Neuts (auto) Neutrophils % Lymphocytes % Monocytes % Eosinophils % Basophils % Nucleated RBC % D-Dimer 400 Sodium 142 Potassium 4.1 Chloride 111 H Carbon Dioxide 24 Anion Gap 7 L BUN 19.1 H Creatinine 1.2 Est GFR (CKD-EPI)AfAm 56.89 Est GFR (CKD-EPI)NonAf 49.08 POC Glucometer Random Glucose 90 Hemoglobin A1c % Calcium 8.9 Phosphorus Magnesium Total Bilirubin 0.4 AST 10 L ALT 15 Alkaline Phosphatase 67 Creatine Kinase 247 H Creatine Kinase Index No Result Required. CK-MB (CK-2) < 1.0 Troponin I < 0.02 Total Protein 6.7 Albumin 3.8 Triglycerides Cholesterol Total LDL Cholesterol HDL Cholesterol 06/28/19 06/28/19 06/28/19 18:18 18:20 22:34 WBC RBC Hgb Hct MCV MCH MCHC RDW Plt Count MPV Absolute Neuts (auto) Neutrophils % Lymphocytes % Monocytes % Eosinophils % Basophils % Nucleated RBC % D-Dimer Sodium Potassium Chloride Carbon Dioxide Anion Gap BUN Creatinine Est GFR (CKD-EPI)AfAm Est GFR (CKD-EPI)NonAf POC Glucometer 94 114 Random Glucose Hemoglobin A1c % Calcium Phosphorus Magnesium Total Bilirubin AST ALT Alkaline Phosphatase Creatine Kinase Creatine Kinase Index CK-MB (CK-2) Troponin I < 0.02 Total Protein Albumin Triglycerides Cholesterol Total LDL Cholesterol HDL Cholesterol 06/29/19 06/29/19 06/29/19 05:45 05:45 05:45 WBC 5.1 RBC 3.61 Hgb 11.2 Hct 32.5 MCV 89.9 MCH 30.9 MCHC 34.4 RDW 12.9 Plt Count 259 MPV 7.9 Absolute Neuts (auto) 2.1 Neutrophils % 41.8 L Lymphocytes % 40.5 H Monocytes % 9.7 Eosinophils % 7.2 H Basophils % 0.8 Nucleated RBC % 0 D-Dimer Sodium Potassium Chloride Carbon Dioxide Anion Gap BUN Creatinine Est GFR (CKD-EPI)AfAm Est GFR (CKD-EPI)NonAf POC Glucometer Random Glucose Hemoglobin A1c % 6.0 Calcium Phosphorus 3.9 Magnesium 2.0 Total Bilirubin AST ALT Alkaline Phosphatase Creatine Kinase Creatine Kinase Index CK-MB (CK-2) Troponin I Total Protein Albumin Triglycerides 181 H Cholesterol 237 H Total LDL Cholesterol 157 H HDL Cholesterol 43 06/29/19 06/29/19 05:54 11:58 WBC RBC Hgb Hct MCV MCH MCHC RDW Plt Count MPV Absolute Neuts (auto) Neutrophils % Lymphocytes % Monocytes % Eosinophils % Basophils % Nucleated RBC % D-Dimer Sodium Potassium Chloride Carbon Dioxide Anion Gap BUN Creatinine Est GFR (CKD-EPI)AfAm Est GFR (CKD-EPI)NonAf POC Glucometer 88 87 Random Glucose Hemoglobin A1c % Calcium Phosphorus Magnesium Total Bilirubin AST ALT Alkaline Phosphatase Creatine Kinase Creatine Kinase Index CK-MB (CK-2) Troponin I Total Protein Albumin Triglycerides Cholesterol Total LDL Cholesterol HDL Cholesterol Active Medications Generic Name Dose Route Start Last Admin Trade Name Freq PRN Reason Stop Dose Admin Aspirin 81 mg 06/28/19 17:15 06/28/19 17:15 Ecotrin - PO 81 mg DAILY LYDIA Administration Atorvastatin Calcium 40 mg 06/29/19 22:00 Lipitor - PO HS [facility] Heparin Sodium (Porcine) 5,000 unit 06/28/19 22:00 06/29/19 06:41 Heparin - SQ 5,000 unit TID LYDIA Administration Insulin Aspart 1 vial 06/28/19 22:00 06/29/19 06:40 Novolog Vial Sliding Scale - SQ Not Given ACHS [facility] Protocol Levothyroxine Sodium 200 mcg 06/29/19 07:00 06/29/19 06:41 Synthroid - PO 200 mcg DAILY@0700 LYDIA Administration Pantoprazole Sodium 40 mg 06/28/19 17:15 06/28/19 17:15 Protonix - PO 40 mg DAILY LYDIA Administration Spironolactone 12.5 mg 06/29/19 12:00 Aldactone - PO DAILY [facility] ASSESSMENT/PLAN: Ms. Ta is a 59 year old lady with a reported pmhx of gastric ulcer, hypothyroidism, and MS (~10 years ago, denies being placed on any medication, denies cath, denies stent placement) who presents to the ED with 3 days of chest pains. # Atypical Chest Pain - differential includes pain from GERD and PE. PE is unlikely given that patient has a Wells score of zero, no recent travel, no reasons for hypercoaguable state, not tachycardic, although patient does have RBB on EKG this is an old finding. - CP resolved - Troponins negative x3 - tele with no events - lipid panel> elevated LDL, start atorvostatin 40 - Dr. Brambila following, plan to transfer patient to [place] for cardiac cath given history of REYEZ and chest tightness and also her lipid panel - Cont ASA 81mg daily #GERD - Protonix 40 daily #Hypothyroidism - Levothyroxine 200mcg daily - f/u TSH #DM- per chart review patient carries this diagnosis but patient denies. BG 90 on admission and have not been very elevated during her stay - BGM ACHS with SSI - Will obtain A1C, and adjust management depending on results # FEN - PO fluids - Replete lytes prn - fat/ chol restricted diet, NPO at midnight #PPx- heparin # Dispo: pending transfer to [place] for cath ATTENDING PHYSICIAN STATEMENT I saw and evaluated the patient. I reviewed the resident's note and discussed the case with the resident. I agree with the resident's findings and plan as documented. SUBJECTIVE: OBJECTIVE: ASSESSMENT AND PLAN:
[2019-06-29] MEDS: ASPIRIN COATED 81 MG TABLET.EC PO SCH (12:55)
[2019-06-29] MEDS: PANTOPRAZOLE 40 MG TABLET (FP) PO SCH (12:55)
--- NOTE | 2019-06-29 15:08 | EKG ---
Test Reason : Blood Pressure : / mmHG Vent. Rate : 055 BPM Atrial Rate : 055 BPM P-R Int : 182 ms QRS Dur : 086 ms QT Int : 444 ms P-R-T Axes : 019 -07 058 degrees QTc Int : 424 ms SINUS BRADYCARDIA T WAVE ABNORMALITY, CONSIDER ANTERIOR ISCHEMIA ABNORMAL ECG WHEN COMPARED WITH ECG OF 28-JUN-2019 11:16, NONSPECIFIC T WAVE ABNORMALITY NO LONGER EVIDENT IN LATERAL LEADS Confirmed by YANETH BROWN, KELLEE ([id number]) on 06/29/2019 3:07:56 PM Referred By: Confirmed By:KELLEE WOLFE MD
[2019-06-29 19:50] VITALS: BP 106/53; PULSE 51
[2019-06-29] MEDS ORDERED: ATORVASTATIN CA 40 MG TABLET (FP) PO SCH (22:00)
== END 2019-06-29 19:59 | disposition short-term general hospital (02) | DRG 311 ==
LOC: JER 11:13 → JERBED 15:48 → J4W 06-29 00:33
PROVIDERS: ADMIT Internal Medicine; ATTEND Internal Medicine
DX: I20.0 Unstable angina (principal); I50.32 Chronic diastolic (congestive) heart failure; E03.9 Hypothyroidism, unspecified; E78.00 Pure hypercholesterolemia, unspecified; I25.2 Old myocardial infarction; J44.9 Chronic obstructive pulmonary disease, unspecified; E11.9 Type 2 diabetes mellitus without complications; K25.9 Gastric ulcer, unspecified as acute or chronic, without hemorrhage or perforation; K21.9 Gastro-esophageal reflux disease without esophagitis; I11.0 Hypertensive heart disease with heart failure
CPT/HCPCS: 36415; 71045-TC-FY; 80053; 80061; 82550; 82553; 82962; 83036; 83721; 83735; 84100; 84443; 84484; 85025; 85027; 85379; 93005; 93010; 99285-25; J0131; J1644

== ENCOUNTER 2019-09-10 16:55 | Observation (INO) | payer OTHER ==
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
--- NOTE | 2019-09-10 17:50 | PDOC ---
Documentation entered by Jaswinder Rhoades SCRIBE, acting as scribe for Renay Pulido MD. Renay Pulido MD: This documentation has been prepared by the yonatane, Jaswinder Rhoades SCRIBE, under my direction and personally reviewed by me in its entirety. I confirm that the documentation accurately reflects all work, treatment, procedures, and medical decision making performed by me. Attending Attestation - Resident Resident Name: AlbertMarckthad - ED Attending Attestation I have performed the following: I have examined & evaluated the patient, The case was reviewed & discussed with the resident, I agree w/resident's findings & plan, Exceptions are as noted - HPI HPI: 09/10/19 17:43 The patient is a 59 year old female with a past medical history of GERD, hypothyroidism, HTN, MA, COPD, HLD, and diabetes here today for evaluation of a syncopal episode. The patients family states that the patient was at her sister s today when she passed out. Family states that when the patient is under a lot of emotional stress, she refuses to talk or follow commands. Patient was unable to contribute to history. Allergies: NKA PCP: Alka Gomez - Physicial Exam PE: 09/10/19 17:43 GENERAL: Well developed, well nourished. No acute distress. HEENT: Normocephalic, atraumatic. PERRLA, EOMI. No conjunctival pallor. Sclera are non- icteric. Moist mucous membranes. Oropharynx is clear. NECK: Supple. Full ROM. No JVD. Carotid pulses 2+ and symmetric, without bruits. No thyromegaly. No lymphadenopathy. CARDIOVASCULAR: Regular rate and rhythm. No murmurs, rubs, or gallops. Distal pulses are 2+ and symmetric. PULMONARY: No evidence of respiratory distress. Lungs clear to auscultation bilaterally. No wheezing, rales or rhonchi. ABDOMINAL: Soft. Non-tender. Non-distended. No rebound or guarding. No organomegaly. Normoactive bowel sounds. MUSCULOSKELETAL Normal range of motion at all joints. No bony deformities or tenderness. No CVA tenderness. EXTREMITIES: No cyanosis. No clubbing. No edema. No calf tenderness. SKIN: Warm and dry. Normal capillary refill. No rashes. No jaundice. NEUROLOGICAL: Cranial nerves 2-12 intact. No deficits to light touch and temperature in face , upper extremities and lower extremities. No motor deficits in the face, upper extremities and lower extremities. Normoreflexic in the upper and lower extremities. Toes are down-going bilaterally. PSYCHIATRIC: +patient refuses to talk or open eyes. +patient refuses to follow commands. - Medical Decision Making 09/10/19 17:29 59-year-old female Brought in by ambulance after having a syncopal episode at a She was seen June 28 this year for chest pain and had a consultation by Dr. du She had a stress echo as an outpatient that was negative in April the echo in March of this year showed a normal LV function Past medical history significant for hyperlipidemia, hypertension 09/10/19 17:40 According to family the patient has "" shut down before when she is very upset. 2 days she was at her sister's and passed out and has been nonverbal since that time. She is voluntarily keeping her eyes closed it is difficult to open her eyelids she refuses to speak 09/10/19 17:50 EKG is normal sinus rhythm at 64 bpm, low voltage QRS, QTC equals 453 09/10/19 18:40 After patient was encouraged by the family to sit up and start talking, the patient did sit up and started talking she has no gross focal neuro deficits 09/10/19 18:56 plan admit to obs telemetry for syncope
--- NOTE | 2019-09-10 19:02 | PDOC ---
*Physical Exam - Vital Signs Last Vital Signs Temp Pulse Resp BP Pulse Ox 98.5 F 61 18 148/80 100 09/10/19 17:04 09/10/19 17:04 09/10/19 17:04 09/10/19 17:04 09/10/19 17:04 ED Treatment Course - LABORATORY CBC & Chemistry Diagram: 09/10/19 19:00 09/10/19 19:00 Medical Decision Making - Medical Decision Making 09/10/19 18:57 Pt received on sign out from Dr. Albert. 59 y/o female presenting with an episode of syncope at her sister's . Does not remember passing out but no complaints at present. Labs, cardiac, work up, and CT head pending. Plan to admit for tele obs. 09/10/19 20:08 Labs reviewed. Laboratory Last Values WBC 6.5 K/mm3 (4.0-10.0) 09/10/19 19:00 RBC 3.73 M/mm3 (3.60-5.2) 09/10/19 19:00 Hgb 11.3 GM/dL (10.7-15.3) 09/10/19 19:00 Hct 33.9 % (32.4-45.2) 09/10/19 19:00 MCV 90.8 fl (80-96) 09/10/19 19:00 MCH 30.4 pg (25.7-33.7) 09/10/19 19:00 MCHC 33.4 g/dl (32.0-36.0) 09/10/19 19:00 RDW 13.5 % (11.6-15.6) 09/10/19 19:00 Plt Count 301 K/MM3 (134-434) 09/10/19 19:00 MPV 7.4 fl (7.5-11.1) L 09/10/19 19:00 Absolute Neuts (auto) 3.7 K/mm3 (1.5-8.0) 09/10/19 19:00 Neutrophils % 56.1 % (42.8-82.8) D 09/10/19 19:00 Lymphocytes % 29.5 % (8-40) D 09/10/19 19:00 Monocytes % 10.3 % (3.8-10.2) H 09/10/19 19:00 Eosinophils % 3.3 % (0-4.5) 09/10/19 19:00 Basophils % 0.8 % (0-2.0) 09/10/19 19:00 Nucleated RBC % 0 % (0-0) 09/10/19 19:00 Sodium 140 mmol/L (136-145) 09/10/19 19:00 Potassium 4.1 mmol/L (3.5-5.1) 09/10/19 19:00 Chloride 107 mmol/L (98-107) 09/10/19 19:00 Carbon Dioxide 27 mmol/L (21-32) 09/10/19 19:00 Anion Gap 6 MMOL/L (8-16) L 09/10/19 19:00 BUN 16.2 mg/dL (7-18) 09/10/19 19:00 Creatinine 1.2 mg/dL (0.55-1.3) 09/10/19 19:00 Est GFR (CKD-EPI)AfAm 56.89 09/10/19 19:00 Est GFR (CKD-EPI)NonAf 49.08 09/10/19 19:00 Random Glucose 93 mg/dL (74-106) 09/10/19 19:00 Calcium 9.3 mg/dL (8.5-10.1) 09/10/19 19:00 Phosphorus 3.9 mg/dL (2.5-4.9) 09/10/19 19:00 Magnesium 2.4 mg/dL (1.8-2.4) 09/10/19 19:00 Total Bilirubin 0.6 mg/dL (0.2-1) 09/10/19 19:00 AST 20 U/L (15-37) 09/10/19 19:00 ALT 31 U/L (13-61) 09/10/19 19:00 Alkaline Phosphatase 73 U/L (45-117) 09/10/19 19:00 Creatine Kinase 261 U/L (26-192) H 09/10/19 19:00 Troponin I < 0.02 ng/ml (0.00-0.05) 09/10/19 19:00 Total Protein 7.1 g/dl (6.4-8.2) 09/10/19 19:00 Albumin 4.3 g/dl (3.4-5.0) 09/10/19 19:00 09/10/19 21:52 CT head shows no intracranial hemorrhage, or acute intra-cranial pathology. 09/10/19 22:08 D/w Dr. Lambert who accepts the patient for admission under Dr. Quinones. Discharge - Discharge Information Problems reviewed: Yes Clinical Impression/Diagnosis: Syncope Condition: Stable - Admission Yes - Follow up/Referral - Patient Discharge Instructions - Post Discharge Activity
[2019-09-10 19:14] LABS: BASO % 0.8 % (0-2.0); EOS % 3.3 % (0-4.5); HEMATOCRIT 33.9 % (32.4-45.2); HEMOGLOBIN 11.3 GM/dL (10.7-15.3); LYMPH % 29.5 % (8-40); MCH 30.4 pg (25.7-33.7); MCHC 33.4 g/dl (32.0-36.0); MEAN CELL VOLUME 90.8 fl (80-96); MEAN PLT VOLUME 7.4 fl (7.5-11.1); MONO % 10.3 % (3.8-10.2); NEUT % 56.1 % (42.8-82.8); PLATELET COUNT 301 K/MM3 (134-434); RBC 3.73 M/mm3 (3.60-5.2); RDW 13.5 % (11.6-15.6); WHITE BLOOD COUNT 6.5 K/mm3 (4.0-10.0)
[2019-09-10 19:37] LABS: PHOSPHOROUS 3.9 mg/dL (2.5-4.9)
[2019-09-10 19:42] LABS: ALBUMIN 4.3 g/dl (3.4-5.0); BILIRUBIN,TOTAL 0.6 mg/dL (0.2-1); BLOOD UREA NITROGEN 16.2 mg/dL (7-18); CALCIUM 9.3 mg/dL (8.5-10.1); CREATININE 1.2 mg/dL (0.55-1.3); MAGNESIUM 2.4 mg/dL (1.8-2.4); POTASSIUM 4.1 mmol/L (3.5-5.1); TOT PROT 7.1 g/dl (6.4-8.2)
[2019-09-10 20:33] LABS: N-TERMINAL BNP 87.3 pg/ml (5-125)
--- NOTE | 2019-09-10 22:48 | HP ---
CHIEF COMPLAINT: Syncopal episode PCP: Dr. Alka Gomez HISTORY OF PRESENT ILLNESS: 59 y/o female PMH HTN, HLD, DM (insulin naive/10 years tx w diet/exercise only) , COPD, GERD, and hypothyroidism c/o episode of syncope during sister's today. Pt states she was sitting down among family at a home when she began to feel her heart race and then has no further recollection. She had no food or beverages for the entirety of the day. She denies prior seizure, spastic movement, JASON, vision change, SOB, CP or tongue biting. Family state the she was non-responsive for 10 minutes. She did n ot lose stool or urine. She did not hit her head as she sat abreast of family. This occurred once in the past during a family argument and the symptoms resolved shortly after, prior to arriving at hospital. After today's episode she experienced JASON and reports that she is hungry. There was no post-LOC confusion but the chart notes a non-verbal period. Pt reports that she was aware of providers, had the desire to reply, but was not able to answer. She states that she takes her medications regularly: 2 in AM, "stomach and chest " and the remained in the PM. Pt reports taking thyroid med HS with dinner. She has not experienced recent illness, been around sick contacts, traveled recently , or eaten new foods. Cardiac catheterization in Jun 2019 at [facility]. The pt reports LEFT breast pain. She states she has lost 10 lbs in the last month; measured by PCP. She states she eats less 2/2 GERD but has not otherwise exercised more or intentionally tried to lose weight. She denies fevers and night sweats. Last mammogram 2018 NEGATIVE. Last colonoscopy 2019 NEGATIVE. Has never had a DEXA scan. She also says she has LUQ and LLQ pain. Last BM this AM was non-bloody with no mucous. She denies back pain, dysuria, polyruia, and hematuria. She denies SOB, CP, vision change, numbness/tingling, and joint pain. ER course was notable for: (1) EKG NSR (2) Trop neg x1 (3) CT head WNL Recent Travel: [place] in Jul 2019 PAST MEDICAL HISTORY: HTN, HLD, DM (insulin naive/10 years tx w diet/exercise only), COPD, GERD, and hypothyroidism PAST SURGICAL HISTORY: Cholecystectomy (2017), appendectomy (2014), thyroidectomy (2013) Family history: Father [place] at 49, Sister DM and cancer (not sure what type) Social History: Smoking:denies Alcohol: denies Drugs: denies Allergies: Fish - throat itchiness HOME MEDICATIONS: Medication Instructions Recorded Lansoprazole [Prevacid -] 30 mg PO DAILY 08/11/14 Aspirin [Aspirin EC] 81 mg PO DAILY 06/28/19 Levothyroxine [Synthroid -] 200 mcg PO DAILY@0700 06/28/19 REVIEW OF SYSTEMS CONSTITUTIONAL: Absent: fever, chills, diaphoresis, generalized weakness, malaise, loss of appetite, weight change HEENT: Absent: rhinorrhea, nasal congestion, throat pain, throat swelling, difficulty swallowing, mouth swelling, ear pain, eye pain, visual changes CARDIOVASCULAR: Absent: chest pain, syncope, palpitations, irregular heart rate, lightheadedness , peripheral edema RESPIRATORY: Absent: cough, shortness of breath, dyspnea with exertion, orthopnea, wheezing, stridor, hemoptysis GASTROINTESTINAL: Absent: abdominal pain, abdominal distension, nausea, vomiting, diarrhea, constipation, melena, hematochezia GENITOURINARY: Absent: dysuria, frequency, urgency, hesitancy, hematuria, flank pain, genital pain MUSCULOSKELETAL: Absent: myalgia, arthralgia, joint swelling, back pain, neck pain SKIN: Absent: rash, itching, pallor HEMATOLOGIC/IMMUNOLOGIC: Absent: easy bleeding, easy bruising, lymphadenopathy, frequent infections ENDOCRINE: Absent: unexplained weight gain, unexplained weight loss, heat intolerance, cold intolerance NEUROLOGIC: Absent: headache, focal weakness or paresthesias, dizziness, unsteady gait, seizure, mental status changes, bladder or bowel incontinence PSYCHIATRIC: Absent: anxiety, depression, suicidal or homicidal ideation, hallucinations. PHYSICAL EXAMINATION Vital Signs - 24 hr 09/10/19 09/10/19 17:04 19:35 Temperature 98.5 F Pulse Rate 61 Pulse Rate [ 61 Left] Respiratory 18 12 Rate Blood Pressure 148/80 Blood Pressure 126/66 [Left Arm] O2 Sat by Pulse 100 100 Oximetry (%) Orthostatic BP POSITIVE 128/66->99/72 GENERAL: AOx3, in no acute distress. HEAD: NCAT EYES: NANY, EOMI, conjunctiva clear. ENT: Ears normal, nares patent, oropharynx clear without exudates. Moist mucous membranes. NECK: Normal range of motion, supple without lymphadenopathy, JVD, or masses. LUNGS: CTAB. No wheezes, and no crackles. No accessory muscle use. HEART: RRR s1 s2 ABDOMEN: Soft, BS present in all 4 quadrants, non-distended, no JVD, MUSCULOSKELETAL: No bony deformities or tenderness. No CVA tenderness. BREAST: No palpable masses BL. No axillary lymphadenopathy BL. Normal nipples with no dc or retraction. UPPER EXTREMITIES: 2+ pulses, warm, well-perfused. No cyanosis. No clubbing. No peripheral edema. LOWER EXTREMITIES: 2+ pulses, warm, well-perfused. No calf tenderness. No peripheral edema. NEUROLOGICAL: No focal deficits. Cranial nerves II-XII intact. Normal speech. Gait not appreciated. PSYCHIATRIC: Cooperative. Good eye contact. Appropriate mood and affect. SKIN: Warm, dry, normal turgor, no rashes or lesions noted, normal capillary refill. Laboratory Results - last 24 hr 09/10/19 09/10/19 09/10/19 19:00 19:00 19:00 WBC 6.5 RBC 3.73 Hgb 11.3 Hct 33.9 MCV 90.8 MCH 30.4 MCHC 33.4 RDW 13.5 Plt Count 301 MPV 7.4 L Absolute Neuts (auto) 3.7 Neutrophils % 56.1 D Lymphocytes % 29.5 D Monocytes % 10.3 H Eosinophils % 3.3 Basophils % 0.8 Nucleated RBC % 0 Sodium 140 Potassium 4.1 Chloride 107 Carbon Dioxide 27 Anion Gap 6 L BUN 16.2 Creatinine 1.2 Est GFR (CKD-EPI)AfAm 56.89 Est GFR (CKD-EPI)NonAf 49.08 Random Glucose 93 Calcium 9.3 Phosphorus Magnesium 2.4 Total Bilirubin 0.6 AST 20 ALT 31 Alkaline Phosphatase 73 Creatine Kinase 261 H Creatine Kinase Index No Result Required. CK-MB (CK-2) < 1.0 Troponin I < 0.02 B-Natriuretic Peptide Total Protein 7.1 Albumin 4.3 09/10/19 19:00 WBC RBC Hgb Hct MCV MCH MCHC RDW Plt Count MPV Absolute Neuts (auto) Neutrophils % Lymphocytes % Monocytes % Eosinophils % Basophils % Nucleated RBC % Sodium Potassium Chloride Carbon Dioxide Anion Gap BUN Creatinine Est GFR (CKD-EPI)AfAm Est GFR (CKD-EPI)NonAf Random Glucose Calcium Phosphorus 3.9 Magnesium Total Bilirubin AST ALT Alkaline Phosphatase Creatine Kinase Creatine Kinase Index CK-MB (CK-2) Troponin I B-Natriuretic Peptide 87.3 Total Protein Albumin ASSESSMENT/PLAN: 59 y/o female PMH HTN, HLD, DM (insulin naive/10 years tx w diet/exercise only) , COPD, GERD, and hypothyroidism c/o episode of syncope during sister's today. No PO intake today. Hx of similar instance in the past. CT head NEG. # Dehydration/orthostatic hypotension VS vasovagal syncope VS undiagnosed arrhythmia - NO PO intake today - Emotional stress of sister's with similar syncopal given family stress - EKG NSR but bradycardic - ECHO - Carotid doppler # Hypothyroidism - TSH improving - Restart home dose levothyroxine 200 mcg QD in AM # Breast pain - F/u out-pt with house registry rn - No reports of weight loss, night sweats, fever or chills - Normal breasts on physical exam # Abdominal pain - No PO intake today in the setting of GERD - Pain relieved by food and rest - Restart home dose lansoprazole 30 mg PO QD # DM - Not currently taking medications and controlled by diet modifications - FS ACHS - ISS # HTN - Not currently taking medications and controlled by diet modifications # HLD - Not currently taking medications and controlled by diet modifications #F/E/N - NS - Cont. to monitor - Low sodium diet # DVT prophylaxis - Heparin SQ # Disposition - Admit to tele/obs Chuy Wong MD Visit type - Emergency Visit Emergency Visit: Yes ED Registration Date: 09/10/19 Care time: The patient presented to the Emergency Department on the above date and was hospitalized for further evaluation of their emergent condition. - New Patient This patient is new to me today: Yes Date on this admission: 09/11/19 - Critical Care Critical Care patient: No ATTENDING PHYSICIAN STATEMENT I saw and evaluated the patient. I reviewed the resident's note and discussed the case with the resident. I agree with the resident's findings and plan as documented. SUBJECTIVE: OBJECTIVE: ASSESSMENT AND PLAN:
[2019-09-10] MEDS ORDERED: SODIUM CHLORIDE 250 ML IV STA (22:51)
[2019-09-10] MEDS ORDERED: SODIUM CHLORIDE 1,000 ML IV SCH (23:15)
[2019-09-11] MEDS: SODIUM CHLORIDE 1,000 ML IV SCH ×2 (00:42→23:35)
--- NOTE | 2019-09-11 00:59 | PN ---
Teaching Attending Note Name of Resident: Chuy Wong ATTENDING PHYSICIAN STATEMENT I saw and evaluated the patient. I reviewed the resident's note and discussed the case with the resident. I agree with the resident's findings and plan as documented. SUBJECTIVE: 59 yo F PMH gastric ulcer, hypothyroidism, and CT, Was at her sister's on 09/10/2019 and was reported to have an episode of syncope witnessed by her family members and friends. Lasted short period of time. Patient was unable to recall what happened and was reported to be mute earlier in the ER.She denied any chest pain shortness of breath or palpitations. Patient with recently significant hypothyroidism however reports compliance with her levothyroxine and TSH was noted to be improving. OBJECTIVE: Last Vital Signs Temp Pulse Resp BP Pulse Ox 98.5 F 61 12 126/66 100 09/10/19 17:04 09/10/19 19:35 09/10/19 19:35 09/10/19 19:35 09/10/19 19:35 GENERAL: Well developed, well nourished. Awake and alert. No acute distress. HEENT: Normocephalic, atraumatic. PERRLA, EOMI. No conjunctival pallor. Sclera are non- icteric. Moist mucous membranes. Oropharynx is clear. NECK: Supple. Full ROM. No JVD. Carotid pulses 2+ and symmetric, without bruits. No thyromegaly. No lymphadenopathy. CARDIOVASCULAR: Regular rate and rhythm. No murmurs, rubs, or gallops. Distal pulses are 2+ and symmetric. PULMONARY: No evidence of respiratory distress. Lungs clear to auscultation bilaterally. No wheezing, rales or rhonchi. ABDOMINAL: Soft. Non-tender. Non-distended. No rebound or guarding. No organomegaly. Normoactive bowel sounds. MUSCULOSKELETAL Normal range of motion at all joints. No bony deformities or tenderness. No CVA tenderness. EXTREMITIES: No cyanosis. No clubbing. No edema. No calf tenderness. SKIN: Warm and dry. Normal capillary refill. No rashes. No jaundice. NEUROLOGICAL: Alert, awake, appropriate. Cranial nerves 2-12 intact. No deficits to light touch and temperature in face, upper extremities and lower extremities. No motor deficits in the in face, upper extremities and lower extremities. Normoreflexic in the upper and lower extremities. Normal speech. PSYCHIATRIC: Sad affect, cooperative Abnormal Lab Results 09/10/19 09/10/19 09/10/19 19:00 19:00 19:00 MPV 7.4 L Monocytes % 10.3 H Anion Gap 6 L Creatine Kinase 261 H TSH 32.00 H Imaging studies reviewed Head CT was negative for any acute insults EKG showed normal sinus rhythm ASSESSMENT AND PLAN: 59-year-old woman with uncontrolled hypothyroidism with improving TSH on high- dose levothyroxine, status post syncope episode. Was noted to have positive orthostatics so may be secondary to orthostatic hypotension, differential diagnosis includes vasovagal versus secondary to occult arrhythmia. Noted to have bradycardia which may play a role in her syncope event. Bradycardia may be secondary to hypothyroidism which is currently being treated. Do not suspect seizure at this time since there is no loss of bowel control or tongue biting. Telemetry observation Bedrest and fall precautions Physical therapy evaluation IV fluid hydration Monitor vital signs closely Continue home dose levothyroxine in a.m. on empty stomach Avoid heart rate slowing agents Transthoracic echo Consider outpatient Holter monitoring DVT prophylaxis with heparin subcutaneously
[2019-09-11 06:02] LABS: HEMATOCRIT 33.6 % (32.4-45.2); HEMOGLOBIN 11.4 GM/dL (10.7-15.3); MCH 30.7 pg (25.7-33.7); MCHC 33.9 g/dl (32.0-36.0); MEAN CELL VOLUME 90.5 fl (80-96); MEAN PLT VOLUME 7.6 fl (7.5-11.1); PLATELET COUNT 275 K/MM3 (134-434); RBC 3.71 M/mm3 (3.60-5.2); RDW 13.5 % (11.6-15.6)
[2019-09-11 06:29] LABS: BLOOD UREA NITROGEN 17.2 mg/dL (7-18); CALCIUM 8.8 mg/dL (8.5-10.1); CREATININE 1.3 mg/dL (0.55-1.3); MAGNESIUM 2.3 mg/dL (1.8-2.4); PHOSPHOROUS 4.2 mg/dL (2.5-4.9); POTASSIUM 3.9 mmol/L (3.5-5.1)
[2019-09-11] MEDS ORDERED: HEPARIN NA (PORCINE) 5,000 UNITS/ML 1ML VIAL ONE ×2 (06:31→22:37)
[2019-09-11] MEDS ORDERED: LEVOTHYROXINE NA 25 MCG TABLET (FP) ONE (06:31)
[2019-09-11] MEDS: LEVOTHYROXINE NA 200 MCG TABLET PO SCH (06:41)
[2019-09-11] MEDS: HEPARIN NA (PORCINE) 5,000 UNITS/ML 1ML VIAL SQ SCH ×3 (06:41→22:38)
[2019-09-11 09:11] LABS: EPI CELLS 2.3 /HPF (0-5/HPF); HYALINE CASTS 1 /lpf (0-8); URINE APPEARANCE CLEAR; URINE BACTERIA 3520.9 /hpf (NEGATIVE); URINE BILIRUBIN NEGATIVE (NEGATIVE); URINE COLOR YELLOW; URINE GLUCOSE (UA) NEGATIVE (NEGATIVE); URINE KETONE NEGATIVE (NEGATIVE); URINE LEUK ESTERASE TRACE (NEGATIVE); URINE NITRITE POSITIVE (NEGATIVE); URINE PROTEIN NEGATIVE (NEGATIVE); URINE RBC 2 /hpf (0-4); URINE UROBILINOGEN 0.2 mg/dL (0.2-1.0); URINE WBC 3 /hpf (0-5)
[2019-09-11] MEDS ORDERED: PANTOPRAZOLE 40 MG TABLET (FP) ONE (09:43)
[2019-09-11] MEDS ORDERED: ASPIRIN 81 MG CHEWABLE TABLETS ONE (09:43)
[2019-09-11] MEDS: PANTOPRAZOLE 40 MG TABLET (FP) PO SCH (09:49)
[2019-09-11] MEDS: ASPIRIN COATED 81 MG TABLET.EC PO SCH (09:49)
--- NOTE | 2019-09-11 12:56 | PN ---
Teaching Attending Note Name of Resident: Hansa Gotti ATTENDING PHYSICIAN STATEMENT I saw and evaluated the patient. I reviewed the resident's note and discussed the case with the resident. I agree with the resident's findings and plan as documented. SUBJECTIVE: Reports lightheadedness on standing. No further CP/palpitations. No headache/visual disturbance/focal limb numbness/weakness/tingling. OBJECTIVE: Afebrile, Hemodynamically Stable Last Vital Signs Temp Pulse Resp BP Pulse Ox 98.5 F 57 L 16 112/65 100 09/10/19 17:04 09/11/19 04:19 09/11/19 04:19 09/11/19 04:19 09/11/19 04:22 HEENT - Atraumatic, Normocephalic. REZA. Heart - S1, S2, RRR Lungs - clear to auscultation. No crackles/wheeze. Abdomen - Soft, non-tender. Bowel Sounds normal Extremities - no edema, no calf tenderness. Neuro - AAO x 3. Tone/Power normal all extremities. Laboratory Results - last 24 hr 09/10/19 09/10/19 09/10/19 19:00 19:00 19:00 WBC 6.5 RBC 3.73 Hgb 11.3 Hct 33.9 MCV 90.8 MCH 30.4 MCHC 33.4 RDW 13.5 Plt Count 301 MPV 7.4 L Absolute Neuts (auto) 3.7 Neutrophils % 56.1 D Lymphocytes % 29.5 D Monocytes % 10.3 H Eosinophils % 3.3 Basophils % 0.8 Nucleated RBC % 0 Sodium 140 Potassium 4.1 Chloride 107 Carbon Dioxide 27 Anion Gap 6 L BUN 16.2 Creatinine 1.2 Est GFR (CKD-EPI)AfAm 56.89 Est GFR (CKD-EPI)NonAf 49.08 Random Glucose 93 Calcium 9.3 Phosphorus Magnesium 2.4 Total Bilirubin 0.6 AST 20 ALT 31 Alkaline Phosphatase 73 Creatine Kinase 261 H Creatine Kinase Index No Result Required. CK-MB (CK-2) < 1.0 Troponin I < 0.02 B-Natriuretic Peptide Total Protein 7.1 Albumin 4.3 TSH 32.00 H Urine Color Urine Appearance Urine pH Ur Specific [place] Urine Protein Urine Glucose (UA) Urine Ketones Urine Blood Urine Nitrite Urine Bilirubin Urine Urobilinogen Ur Leukocyte Esterase Urine WBC (Auto) Urine RBC (Auto) Urine Casts (Auto) U Epithel Cells (Auto) Urine Bacteria (Auto) 09/10/19 09/11/19 09/11/19 19:00 05:40 05:40 WBC 5.0 RBC 3.71 Hgb 11.4 Hct 33.6 MCV 90.5 MCH 30.7 MCHC 33.9 RDW 13.5 Plt Count 275 MPV 7.6 Absolute Neuts (auto) Neutrophils % Lymphocytes % Monocytes % Eosinophils % Basophils % Nucleated RBC % Sodium 142 Potassium 3.9 Chloride 107 Carbon Dioxide 28 Anion Gap 7 L BUN 17.2 Creatinine 1.3 Est GFR (CKD-EPI)AfAm 51.64 Est GFR (CKD-EPI)NonAf 44.55 Random Glucose 101 Calcium 8.8 Phosphorus 3.9 4.2 Magnesium 2.3 Total Bilirubin AST ALT Alkaline Phosphatase Creatine Kinase Creatine Kinase Index CK-MB (CK-2) Troponin I B-Natriuretic Peptide 87.3 Total Protein Albumin TSH Urine Color Urine Appearance Urine pH Ur Specific [place] Urine Protein Urine Glucose (UA) Urine Ketones Urine Blood Urine Nitrite Urine Bilirubin Urine Urobilinogen Ur Leukocyte Esterase Urine WBC (Auto) Urine RBC (Auto) Urine Casts (Auto) U Epithel Cells (Auto) Urine Bacteria (Auto) 09/11/19 08:50 WBC RBC Hgb Hct MCV MCH MCHC RDW Plt Count MPV Absolute Neuts (auto) Neutrophils % Lymphocytes % Monocytes % Eosinophils % Basophils % Nucleated RBC % Sodium Potassium Chloride Carbon Dioxide Anion Gap BUN Creatinine Est GFR (CKD-EPI)AfAm Est GFR (CKD-EPI)NonAf Random Glucose Calcium Phosphorus Magnesium Total Bilirubin AST ALT Alkaline Phosphatase Creatine Kinase Creatine Kinase Index CK-MB (CK-2) Troponin I B-Natriuretic Peptide Total Protein Albumin TSH Urine Color Yellow Urine Appearance Clear Urine pH 6.0 Ur Specific [place] 1.015 Urine Protein Negative Urine Glucose (UA) Negative Urine Ketones Negative Urine Blood Negative Urine Nitrite Positive H Urine Bilirubin Negative Urine Urobilinogen 0.2 Ur Leukocyte Esterase Trace Urine WBC (Auto) 3 Urine RBC (Auto) 2 Urine Casts (Auto) 1 U Epithel Cells (Auto) 2.3 Urine Bacteria (Auto) 3520.9 Current Medications Generic Name Dose Route Start Last Admin Trade Name Freq PRN Reason Stop Dose Admin Aspirin 81 mg 09/11/19 10:00 09/11/19 09:49 Ecotrin - PO 81 mg DAILY LYDIA Administration Heparin Sodium (Porcine) 5,000 unit 09/11/19 06:00 09/11/19 06:41 Heparin - SQ 5,000 unit TID LYDIA Administration Sodium Chloride 1,000 mls @ 75 mls/hr 09/11/19 00:38 09/11/19 00:42 Normal Saline - IV 75 mls/hr ASDIR LYDIA Administration Levothyroxine Sodium 200 mcg 09/11/19 07:00 09/11/19 06:41 Synthroid - PO 200 mcg DAILY@0700 LYDIA Administration Pantoprazole Sodium 40 mg 09/11/19 10:00 09/11/19 09:49 Protonix - PO 40 mg DAILY LYDIA Administration Home Medications Medication Instructions Recorded Lansoprazole [Prevacid -] 30 mg PO DAILY 08/11/14 Aspirin [Aspirin EC] 81 mg PO DAILY 06/28/19 Levothyroxine [Synthroid -] 200 mcg PO DAILY@0700 06/28/19 ASSESSMENT AND PLAN: 59 year old female wit history of PUD, severe Hypothyroidism (follows with Dr. Herbert), CAD s/p [place], admitted after an episode of syncope at the of her sister. Found to Orthostatics positive with associated symptoms. 1. Syncope, likely vasovagal. Found to have Postural Hypotension ?sec to dehydration/vasovagal versus endocrine dysfunction/severe hypothyroidism Head CT - no acute intracranial findings. EKG - NSR. Carotid Duplex - plaques R common carotid but no hemodynamically significant stenosis. TSH 32, on Levothyroxine 200mcg IV hydration ongoing Telemonitoring Echo Urine Cx pending. PT 2. PUD - Continue PPI 3. Hypothyroidism TSH 32 - continued on Levothyroxine 200mcg ? endocrine dysfunction contributing factor to orthostasis No evidence of myxedema crisis. 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 DVT Px - Heparin SQ
--- NOTE | 2019-09-11 15:11 | ECHO ---
Name: GILMA GALLEGO Exam:Adult Echocardiogram Study Date: 09/11/2019 10:42 AM Age: 59 yrs Height: 71 in Weight: 150 lb BSA: 1.9 m2 MMode/2D Measurements & Calculations IVSd: 0.96 cm Ao root diam: 3.0 cm LVIDd: 4.1 cm LA dimension: 4.0 cm LVIDs: 2.6 cm LVPWd: 1.1 cm LVPWs: 1.2 cm EDV(Teich): 75.4 ml ESV(Teich): 24.5 ml LVOT diam: 2.0 cm LAV (MOD-bp): 55.0 ml Doppler Measurements & Calculations MV E max mazin: 68.6 cm/sec Ao V2 max: 136.3 cm/sec MV A max mazin: 85.4 cm/sec Ao max P.5 mmHg MV E/A: 0.80 MV dec time: 0.18 sec LOUIS(V,D): 2.8 cm2 LV V1 max P.9 mmHg TR max mazin: 213.9 cm/sec LV V1 max: 121.9 cm/sec TR max P.4 mmHg PA V2 max: 97.3 cm/sec Med Peak E' Mazin: 4.7 cm/sec PA max P.8 mmHg Med E/e': 14.7 Procedure A complete two-dimensional transthoracic echocardiogram was performed (2D, M-mode, Doppler and color flow Doppler). Left Ventricle The left ventricle is normal in size. Left ventricular systolic function is normal. Ejection Fraction = 60- 65%. Grade I diastolic dysfunction, (abnormal relaxation pattern). Ratio E/E'= 14. No regional wall m otion abnormalities noted. Right Ventricle The right ventricle is normal size. The right ventricular systolic function is normal. RV systolic TD I is 13 cm/s. Atria The left atrial size is normal. LA volume index is 29 ml/m2. Right atrial size is normal. Mitral Valve There is mild mitral annular calcification. There is moderate mitral regurgitation. Tricuspid Valve The tricuspid valve is normal in structure and function. There is mild tricuspid regurgitation. Right ventricular systolic pressure is normal. Aortic Valve There is mild aortic sclerosis.;. No aortic regurgitation is present. Pulmonic Valve The pulmonic valve is not well visualized. Great Vessels The aortic root is normal size. Pericardium/Pleura There is no pericardial effusion. Interpretation Summary The left ventricle is normal in size. Left ventricular systolic function is normal. No regional wall motion abnormalities noted. Ejection Fraction = 60-65%. Grade I diastolic dysfunction, (abnormal relaxation pattern). Ratio E/E'= 14 The right ventricular systolic function is normal. The left atrial size is normal. Right atrial size is normal. There is mild mitral annular calcification. There is moderate mitral regurgitation. There is mild tricuspid regurgitation. Right ventricular systolic pressure is normal. There is mild aortic sclerosis. There is no pericardial effusion. Rashad Charlton MD 09/11/2019 03:10 PM
--- NOTE | 2019-09-11 15:46 | PN ---
Physical Exam: SUBJECTIVE: Patient seen and examined. Complains of lightheadedness when going to the bathroom and when she was moved from he ER bed to the holding area in the ED. She denies any chest pain, SOB, N/V/D, dysuria, hematuria. She denies any history of strokes. OBJECTIVE: Vital Signs Period Temp Pulse Resp BP Sys/Chaudhry Pulse Ox Last 24 Hr 98.5 F 57-74 12-18 106-148/65-80 97-100 GENERAL: The patient is awake, alert, and fully oriented, in no acute distress. HEAD: Normal with no signs of trauma. EYES: PERRL, EOMI, no scleral icterus ENT: oropharynx clear without exudates, moist mucous membranes. NECK: Trachea midline, full range of motion, supple. LUNGS: Breath sounds equal, clear to auscultation bilaterally, no wheezes, no crackles, no accessory muscle use. HEART: Regular rate and rhythm, S1, S2 without murmur, rub or gallop. ABDOMEN: Soft, nontender, nondistended, normoactive bowel sounds, no guarding EXTREMITIES: 2+ pulses, warm, well-perfused, no edema. NEUROLOGICAL: Normal speech, gait not observed. Dizziness with postural movements. PSYCH: appropriate mood and affect SKIN: Warm, dry Laboratory Results - last 24 hr 09/10/19 09/10/19 09/10/19 19:00 19:00 19:00 WBC 6.5 RBC 3.73 Hgb 11.3 Hct 33.9 MCV 90.8 MCH 30.4 MCHC 33.4 RDW 13.5 Plt Count 301 MPV 7.4 L Absolute Neuts (auto) 3.7 Neutrophils % 56.1 D Lymphocytes % 29.5 D Monocytes % 10.3 H Eosinophils % 3.3 Basophils % 0.8 Nucleated RBC % 0 Sodium 140 Potassium 4.1 Chloride 107 Carbon Dioxide 27 Anion Gap 6 L BUN 16.2 Creatinine 1.2 Est GFR (CKD-EPI)AfAm 56.89 Est GFR (CKD-EPI)NonAf 49.08 Random Glucose 93 Calcium 9.3 Phosphorus Magnesium 2.4 Total Bilirubin 0.6 AST 20 ALT 31 Alkaline Phosphatase 73 Creatine Kinase 261 H Creatine Kinase Index No Result Required. CK-MB (CK-2) < 1.0 Troponin I < 0.02 B-Natriuretic Peptide Total Protein 7.1 Albumin 4.3 TSH 32.00 H Urine Color Urine Appearance Urine pH Ur Specific [place] Urine Protein Urine Glucose (UA) Urine Ketones Urine Blood Urine Nitrite Urine Bilirubin Urine Urobilinogen Ur Leukocyte Esterase Urine WBC (Auto) Urine RBC (Auto) Urine Casts (Auto) U Epithel Cells (Auto) Urine Bacteria (Auto) 09/10/19 09/11/19 09/11/19 19:00 05:40 05:40 WBC 5.0 RBC 3.71 Hgb 11.4 Hct 33.6 MCV 90.5 MCH 30.7 MCHC 33.9 RDW 13.5 Plt Count 275 MPV 7.6 Absolute Neuts (auto) Neutrophils % Lymphocytes % Monocytes % Eosinophils % Basophils % Nucleated RBC % Sodium 142 Potassium 3.9 Chloride 107 Carbon Dioxide 28 Anion Gap 7 L BUN 17.2 Creatinine 1.3 Est GFR (CKD-EPI)AfAm 51.64 Est GFR (CKD-EPI)NonAf 44.55 Random Glucose 101 Calcium 8.8 Phosphorus 3.9 4.2 Magnesium 2.3 Total Bilirubin AST ALT Alkaline Phosphatase Creatine Kinase Creatine Kinase Index CK-MB (CK-2) Troponin I B-Natriuretic Peptide 87.3 Total Protein Albumin TSH Urine Color Urine Appearance Urine pH Ur Specific [place] Urine Protein Urine Glucose (UA) Urine Ketones Urine Blood Urine Nitrite Urine Bilirubin Urine Urobilinogen Ur Leukocyte Esterase Urine WBC (Auto) Urine RBC (Auto) Urine Casts (Auto) U Epithel Cells (Auto) Urine Bacteria (Auto) 09/11/19 08:50 WBC RBC Hgb Hct MCV MCH MCHC RDW Plt Count MPV Absolute Neuts (auto) Neutrophils % Lymphocytes % Monocytes % Eosinophils % Basophils % Nucleated RBC % Sodium Potassium Chloride Carbon Dioxide Anion Gap BUN Creatinine Est GFR (CKD-EPI)AfAm Est GFR (CKD-EPI)NonAf Random Glucose Calcium Phosphorus Magnesium Total Bilirubin AST ALT Alkaline Phosphatase Creatine Kinase Creatine Kinase Index CK-MB (CK-2) Troponin I B-Natriuretic Peptide Total Protein Albumin TSH Urine Color Yellow Urine Appearance Clear Urine pH 6.0 Ur Specific [place] 1.015 Urine Protein Negative Urine Glucose (UA) Negative Urine Ketones Negative Urine Blood Negative Urine Nitrite Positive H Urine Bilirubin Negative Urine Urobilinogen 0.2 Ur Leukocyte Esterase Trace Urine WBC (Auto) 3 Urine RBC (Auto) 2 Urine Casts (Auto) 1 U Epithel Cells (Auto) 2.3 Urine Bacteria (Auto) 3520.9 Active Medications Generic Name Dose Route Start Last Admin Trade Name Dario PRN Reason Stop Dose Admin Aspirin 81 mg 09/11/19 10:00 09/11/19 09:49 Ecotrin - PO 81 mg DAILY LYDIA Administration Heparin Sodium (Porcine) 5,000 unit 09/11/19 06:00 09/11/19 14:19 Heparin - SQ Not Given TID LYDIA Sodium Chloride 1,000 mls @ 75 mls/hr 09/11/19 00:38 09/11/19 00:42 Normal Saline - IV 75 mls/hr ASDIR LYDIA Administration Levothyroxine Sodium 200 mcg 09/11/19 07:00 09/11/19 06:41 Synthroid - PO 200 mcg DAILY@0700 LYDIA Administration Pantoprazole Sodium 40 mg 09/11/19 10:00 09/11/19 09:49 Protonix - PO 40 mg DAILY LYDIA Administration ASSESSMENT/PLAN: 59 y/o/f with PMHx of HTN, HLD, DM (insulin naive/10 years tx w diet/exercise only), COPD, GERD, and hypothyroidism c/o episode of syncope during sister's today. Hx of similar instance in the past. #Syncopal episode 2/2 Dehydration vs. orthostatic hypotension VS vasovagal syncope - likely vasovagal hypotension as patient has dizziness associated with postural changes - NO PO intake on day of syncopal episode - patient reports emotional stress of sister's - EKG NSR but bradycardic - ECHO shows normal EF, no significant pathology noted - Carotid doppler without evidence of hemodynamicaly significant stenosis - Trop negative - CT head without acute intracranial pathology #Hypothyroidism - TSH elevated to 32 - Endocrine consulted, appreciate recs - Continue home dose of Levothyroxine for now. - Repeat TFT in 2 weeks, will adjust dose at that point - Will start on home dose levothyroxine 200 mcg daily - Patient reported to be taking Levothyroxine at night with food #Abdominal pain - No PO intake on day of syncopal episode in the setting of GERD - Pain relieved by food and rest - Started on Protonix #DM - Not currently taking medications and controlled by diet modifications - FS ACHS - Start ISS if needed #HTN - Not currently taking medications and controlled by diet modifications #HLD - Not currently taking medications and controlled by diet modifications #FEN - NS @75mls/hr - Low sodium diet #DVT prophylaxis - Heparin SQ #Disposition - Tele/obs admission Visit type - Emergency Visit Emergency Visit: Yes ED Registration Date: 09/10/19 Care time: The patient presented to the Emergency Department on the above date and was hospitalized for further evaluation of their emergent condition. - New Patient This patient is new to me today: Yes Date on this admission: 09/11/19 - Critical Care Critical Care patient: No ATTENDING PHYSICIAN STATEMENT I saw and evaluated the patient. I reviewed the resident's note and discussed the case with the resident. I agree with the resident's findings and plan as documented. SUBJECTIVE: OBJECTIVE: ASSESSMENT AND PLAN:
--- NOTE | 2019-09-11 15:56 | CONSULT ---
Consult Consult Specialty:: Endocrinology Referred by:: Tad Diaz Reason for Consultation:: Hypothyroidism - History of Present Illness Chief Complaint: Syncope History of Present Illness: This is a 59 y/o female with h/o HTN, HLD, DM , COPD, GERD, and hypothyroidism who when she passed out whle she was sitting with her family during sister's yesterday. She recalls waking up in the ED. She had no food or beverages for the entirety of the day. She denies prior seizure, spastic movement, JASON, vision change, SOB, CP or tongue biting. Family state the she was non-responsive for 10 minutes. She did n ot lose stool or urine. Pt says she has been taking her meds regularly as prescribed. Pt referred for management of hypothyrodism as TSH is 32. Pt feels better. No heat or cold intolerance. - History Source History Provided By: Patient, Medical Record - Past Medical History Cardio/Vascular: Yes: HTN, Hyperlipdemia Pulmonary: Yes: COPD Endocrine: Yes: Diabetes Mellitus, Hypothyroidism - Alcohol/Substance Use Hx Alcohol Use: No History of Substance Use: reports: None - Smoking History Smoking history: Never smoked Have you smoked in the past 12 months: No Aproximately how many cigarettes per day: 0 - Social History ADL: Independent History of Recent Travel: No Home Medications - Allergies Allergies/Adverse Reactions: Allergies Allergy/AdvReac Type Severity Reaction Status Date / Time No Known Allergies Allergy Verified 09/10/19 17:03 - Home Medications Home Medications: Ambulatory Orders Aspirin [Aspirin EC] 81 mg PO DAILY 06/28/19 Levothyroxine [Synthroid -] 200 mcg PO DAILY@0700 06/28/19 Atorvastatin Ca [Lipitor] 40 mg PO DAILY 09/11/19 Metoprolol Succinate 25 mg PO DAILY 09/11/19 Pantoprazole Sodium [Protonix] 40 mg PO BID 09/11/19 Ranolazine [Ranexa] 500 mg PO BID 09/11/19 Spironolactone 25 mg PO DAILY 09/11/19 Review of Systems - Review of Systems Constitutional: reports: Malaise Eyes: reports: No Symptoms HENT: reports: No Symptoms Neck: reports: No Symptoms Cardiovascular: reports: No Symptoms Respiratory: reports: No Symptoms Gastrointestinal: reports: No Symptoms Genitourinary: reports: No Symptoms Musculoskeletal: reports: No Symptoms Neurological: reports: No Symptoms Endocrine: reports: No Symptoms Physical Exam Vital Signs: Vital Signs Temperature 98.5 F 09/10/19 17:04 Pulse Rate 74 09/11/19 12:55 Respiratory Rate 16 09/11/19 12:55 Blood Pressure 106/67 09/11/19 12:55 O2 Sat by Pulse Oximetry (%) 99 09/11/19 12:55 Constitutional: Yes: No Distress, Calm Eyes: Yes: Conjunctiva Clear, EOM Intact HENT: Yes: Atraumatic, Normocephalic Neck: Yes: Supple, Trachea Midline Cardiovascular: Yes: Regular Rate and Rhythm Respiratory: Yes: Regular, CTA Bilaterally Gastrointestinal: Yes: Normal Bowel Sounds, Soft Musculoskeletal: Yes: WNL Extremities: Yes: WNL Edema: No Neurological: Yes: Alert, Oriented Labs: CBC, BMP 09/11/19 05:40 09/11/19 05:40 Imaging - Results Cat Scan: Report Reviewed Ultrasound: Report Reviewed Assessment/Plan AP: Syncope Hypothyroidism: TSH 32 T2DM on diet Pt says she has been taking LT4 regularly as prescribed Continue LT4 200 for now. Monitor BGM NOvolog SS coverage as necessary Will F/u
[2019-09-11] MEDS ORDERED: ACETAMINOPHEN 325 MG TABLET (FP) PO ONE (23:27)
[2019-09-11] MEDS ORDERED: ACETAMINOPHEN 325 MG TABLET (FP) ONE (23:33)
[2019-09-12] MEDS: SODIUM CHLORIDE 1,000 ML IV SCH ×2 (06:32→14:46)
[2019-09-12] MEDS: HEPARIN NA (PORCINE) 5,000 UNITS/ML 1ML VIAL SQ SCH ×3 (06:33→21:40)
[2019-09-12] MEDS: LEVOTHYROXINE NA 200 MCG TABLET PO SCH (06:33)
[2019-09-12 06:43] LABS: HEMATOCRIT 32.9 % (32.4-45.2); HEMOGLOBIN 11.1 GM/dL (10.7-15.3); MCH 30.5 pg (25.7-33.7); MCHC 33.7 g/dl (32.0-36.0); MEAN CELL VOLUME 90.7 fl (80-96); MEAN PLT VOLUME 7.7 fl (7.5-11.1); PLATELET COUNT 291 K/MM3 (134-434); RBC 3.62 M/mm3 (3.60-5.2); RDW 13.8 % (11.6-15.6); WHITE BLOOD COUNT 6.2 K/mm3 (4.0-10.0)
[2019-09-12 07:08] LABS: BLOOD UREA NITROGEN 23.4 mg/dL (7-18); CREATININE 1.1 mg/dL (0.55-1.3)
[2019-09-12] MEDS ORDERED: SODIUM CHLORIDE 1,000 ML IV STA (07:50)
[2019-09-12] MEDS: ASPIRIN COATED 81 MG TABLET.EC PO SCH (09:01)
[2019-09-12] MEDS: PANTOPRAZOLE 40 MG TABLET (FP) PO SCH (09:01)
--- NOTE | 2019-09-12 09:48 | EKG ---
Test Reason : Blood Pressure : / mmHG Vent. Rate : 064 BPM Atrial Rate : 064 BPM P-R Int : 166 ms QRS Dur : 084 ms QT Int : 440 ms P-R-T Axes : 040 006 056 degrees QTc Int : 453 ms NORMAL SINUS RHYTHM LOW VOLTAGE QRS BORDERLINE ECG WHEN COMPARED WITH ECG OF 28-JUN-2019 13:35, NO SIGNIFICANT CHANGE WAS FOUND Confirmed by MD Yi Daniel ([id number]) on 09/12/2019 9:48:14 AM Referred By: Confirmed By:Jaswinder Yi MD
--- NOTE | 2019-09-12 10:32 | PN ---
Teaching Attending Note Name of Resident: Hansa Gotti ATTENDING PHYSICIAN STATEMENT I saw and evaluated the patient. I reviewed the resident's note and discussed the case with the resident. I agree with the resident's findings and plan as documented. SUBJECTIVE: Some lightheadedness on standing yesterday, not yet ambulated today. No CP/palpitations. No headache/visual disturbance/focal limb numbness/ weakness/tingling. OBJECTIVE: Afebrile, Hemodynamically Stable Last Vital Signs Temp Pulse Resp BP Pulse Ox 98.5 F 60 18 109/58 L 96 09/12/19 10:07 09/12/19 10:07 09/12/19 10:07 09/12/19 10:07 09/11/19 23:26 Heart - S1, S2, RRR Lungs - clear to auscultation. No crackles/wheeze. Abdomen - Soft, non-tender. Bowel Sounds normal Extremities - no edema, no calf tenderness. Neuro - AAO x 3. REZA. EOMI. Tone/Power normal all extremities. Laboratory Results - last 24 hr 09/12/19 09/12/19 09/12/19 05:45 05:45 06:00 WBC 6.2 RBC 3.62 Hgb 11.1 Hct 32.9 MCV 90.7 MCH 30.5 MCHC 33.7 RDW 13.8 Plt Count 291 MPV 7.7 Sodium 143 Potassium 4.0 Chloride 110 H Carbon Dioxide 26 Anion Gap 7 L BUN 23.4 H Creatinine 1.1 Est GFR (CKD-EPI)AfAm 63.20 Est GFR (CKD-EPI)NonAf 54.53 POC Glucometer 91 Random Glucose 87 Calcium 9.0 Current Medications Generic Name Dose Route Start Last Admin Trade Name Dario PRN Reason Stop Dose Admin Aspirin 81 mg 09/11/19 10:00 09/12/19 09:01 Ecotrin - PO 81 mg DAILY LYDIA Administration Heparin Sodium (Porcine) 5,000 unit 09/11/19 06:00 09/12/19 06:33 Heparin - SQ 5,000 unit TID LYDIA Administration Sodium Chloride 1,000 mls @ 75 mls/hr 09/11/19 00:38 09/12/19 06:32 Normal Saline - IV Not Given ASDIR LYDIA Levothyroxine Sodium 200 mcg 09/11/19 07:00 09/12/19 06:33 Synthroid - PO 200 mcg DAILY@0700 LYDIA Administration Pantoprazole Sodium 40 mg 09/11/19 10:00 09/12/19 09:01 Protonix - PO 40 mg DAILY LYDIA Administration Home Medications Medication Instructions Recorded Aspirin [Aspirin EC] 81 mg PO DAILY 06/28/19 Levothyroxine [Synthroid -] 200 mcg PO DAILY@0700 06/28/19 Atorvastatin Ca [Lipitor] 40 mg PO DAILY 09/11/19 Metoprolol Succinate 25 mg PO DAILY 09/11/19 Pantoprazole Sodium [Protonix] 40 mg PO BID 09/11/19 Ranolazine [Ranexa] 500 mg PO BID 09/11/19 Spironolactone 25 mg PO DAILY 09/11/19 ASSESSMENT AND PLAN: 59 year old female with history of HTN, PUD, severe Hypothyroidism (follows with Dr. Herbert), CAD s/p CT, admitted after an episode of syncope at the of her sister. Found to Orthostatics positive with associated symptoms. 1. Syncope, likely vasovagal. Found to have Postural Hypotension ?sec to dehydration/vasovagal versus endocrine dysfunction/autonomic neuropathy Head CT - no acute intracranial findings. EKG - NSR. Carotid Duplex - plaques R common carotid but no hemodynamically significant stenosis. No telemonitoring events. Echo - Grade I diastolic dysfunction, moderate MR TSH 32, on Levothyroxine 200mcg - continue as per Endo IV hydration ongoing Repeat Orthostatic vitals, PT If still positive, consider Fludrocortisone 2. PUD - Continue PPI 3. Hypothyroidism TSH 32 - continued on Levothyroxine 200mcg ? endocrine dysfunction contributing factor to orthostasis No evidence of myxedema crisis. Patient's attendant lodging facilities Dr. Herbert recommends continuing Synthroid at current dose. 4. HTN - BP borderline currently with orthostatic drop. Hold Spironolactone and Metoprolol. 5. CAD s/p CT - Continue Aspirin/Statin. BB held due to borderline BP. DVT Px - Heparin SQ
[2019-09-12 14:48] VITALS: BMI 24.4
--- NOTE | 2019-09-12 15:01 | CON.CARD ---
Consult Consult Specialty:: cardio - History of Present Illness Chief Complaint: fainting spell History of Present Illness: 59 F here with syncope. occurred in setting of sister's , while seated. hadn't eaten or drank fluids prior to that, for several hours (episode occurred around 4 pm). was intensely emotional at the time and had just started weeping when the sx's began. prodrome of heart racing for a second. several minutes without consciousness, per family members estimate to admitting team. apparently with brief period of difficult with speech production afterward, though no confusion--pt recalls difficulty getting words from her head out in speech CT head and carotids unremarkable. no assctd neuro deficits. no cp or sob. her chronic cp/sob with exertion is actually better of late. bp stable. orthostatics today dropped 112 supine to 94 standing (similar readings x 2) PMH: HPL ? mild diast dysfunction TSH - Past Medical History Cardio/Vascular: Yes: HTN, Hyperlipdemia Pulmonary: Yes: COPD Endocrine: Yes: Diabetes Mellitus, Hypothyroidism - Alcohol/Substance Use Hx Alcohol Use: No History of Substance Use: reports: None - Smoking History Smoking history: Never smoked Have you smoked in the past 12 months: No Aproximately how many cigarettes per day: 0 - Social History ADL: Independent History of Recent Travel: No Home Medications - Allergies Allergies/Adverse Reactions: Allergies Allergy/AdvReac Type Severity Reaction Status Date / Time No Known Allergies Allergy Verified 09/10/19 17:03 - Home Medications Home Medications: Ambulatory Orders Aspirin [Aspirin EC] 81 mg PO DAILY 06/28/19 Levothyroxine [Synthroid -] 200 mcg PO DAILY@0700 06/28/19 Atorvastatin Ca [Lipitor] 40 mg PO DAILY 09/11/19 Metoprolol Succinate 25 mg PO DAILY 09/11/19 Pantoprazole Sodium [Protonix] 40 mg PO BID 09/11/19 Ranolazine [Ranexa] 500 mg PO BID 09/11/19 Spironolactone 25 mg PO DAILY 09/11/19 Family Medical History Family History: Denies (no known cmp) Review of Systems - Review of Systems Constitutional: denies: Chills, Fever Eyes: denies: Eye Pain HENT: denies: Nasal Congestion Neck: denies: Stiffness Cardiovascular: denies: Edema Respiratory: denies: Orthopnea, PND Gastrointestinal: denies: Diarrhea, Rectal Bleeding Genitourinary: denies: Burning, Hematuria Musculoskeletal: denies: Muscle Pain Integumentary: denies: Rash Neurological: reports: Syncope. denies: Numbness, Seizure, Tremors Endocrine: denies: Excessive Sweating Hematology/Lymphatic: denies: Excessive Bleeding Vital Signs: Vital Signs Temperature 98.5 F 09/12/19 14:00 Pulse Rate 60 09/12/19 14:00 Respiratory Rate 18 09/12/19 14:00 Blood Pressure 110/57 L 09/12/19 14:00 O2 Sat by Pulse Oximetry (%) 94 L 09/12/19 09:00 Constitutional: Yes: Well Nourished, No Distress Eyes: No: Sclera Icterus HENT: No: Nasal Congestion Neck: No: Decreased ROM Respiratory: Yes: CTA Bilaterally. No: Accessory Muscle Use Gastrointestinal: Yes: Normal Bowel Sounds. No: Distention, Hepatomegaly, Palpable Mass, Tenderness Cardiovascular: Yes: Regular Rate and Rhythm JVD: No Carotid Bruit: No PMI: Non-Displaced Heart Sounds: Yes: S1, S2. No: Gallop Murmur: No: Systolic Murmur, Diastolic Murmur Musculoskeletal: Yes: Other (No kyphosis) Extremities: No: Cool, Cyanosis Edema: No Peripheral Pulses: 2+ Left Carotid, 2+ Right Carotid, 2+ Left Doralis Pedis, 2+ Right Dorsalis Pedis Integumentary: No: Jaundice Neurological: Yes: Alert, Oriented (x3) Psychiatric: No: Agitated - Other Data Labs, Other Data: CBC, BMP 09/12/19 05:45 09/12/19 05:45 Assessment/Plan ECG: NSR, normal axis and intervals. NSST-Ts septal leads improved vs prior. qrs voltages lower than prior CXR: clear lungs/pleura CT head: no acute pathology Carotid dopplers: nonobstructive plaque [facility] 06/2019: normal EDP, mild/non-obstructive CAD Stress Echo 05/15: 6 min-->manual for 8 min (9 METs). Non-ischemic stress test by EKG. No echocardiographic evidence of inducible ischemia. Moderate MR (central jet) post-exercise. Incomplete TR doppler signal hence could not accurately estimated peak RV systolic pressure. Echo 03/2019: nl LV/EF. probably hi LAP. RV size ULN, nl RVSF. mod LAE. mod MR, mild-mod TR. no RVSP. tele: NSR, no events syncope: -setting of episode (prolonged fasting state, intense emotional trigger) raises suspicion for vasovagal etiology--harmony given her baseline soft BPs (runs 100s- 110s in office) and orthostatic changes here. -however no typical vasovagal sx's around the time of the event (doesn't rule out this etiology, however), and prodrome of intense racing heartbeat prior raises possibility of arrhythmia causing hypotension. -low risk for malignant arrhythmia given benign coronaries on cath recently, and normal LVEF. -tele here thus far WNL -will d/w EP: ? outpatient patch monitor, vs need for inpatient EP study??? -? orthostasis related to hypothyroid state, being treated by endo here. cortisol level pending -not concerning for ACS (trop neg, ECG non-ischemic, recently benign cath) -cont tele chronic exertional SOB and chest discomfort: -extensive w/u previously unrevealing including [facility] 07/15, BNP (27), PFTs ( minimal restriction and minimal diffusion defect). unfortunately RHC not performed at time of invasive eval. -previously did not improve with low dose spirono trial (12.5 qd)--dose limited by soft resting bp's HPL: -likely FH (baseline LDL 220s) -cont home atorva hypothyroidism: -TSH 32 -per primary
--- NOTE | 2019-09-12 15:01 | PN ---
Progress Note (short form) - Note Progress Note: Feels better Less dizziness Vital Signs Period Temp Pulse Resp BP Sys/Chaudhry Pulse Ox Last 24 Hr 97.9 F-98.5 F 51-82 18-18 91-125/38-69 94-96 PE: AOx3 Neck: Supple, No JVD HEENT: PERRL, EOMI Lungs: CTA CVS: s1S2 Abd: Benign Ext: No edema Neuro: No focal deficit CMP Sodium 143 mmol/L (136-145) 09/12/19 05:45 Potassium 4.0 mmol/L (3.5-5.1) 09/12/19 05:45 Chloride 110 mmol/L (98-107) H 09/12/19 05:45 Carbon Dioxide 26 mmol/L (21-32) 09/12/19 05:45 Anion Gap 7 MMOL/L (8-16) L 09/12/19 05:45 BUN 23.4 mg/dL (7-18) H 09/12/19 05:45 Creatinine 1.1 mg/dL (0.55-1.3) 09/12/19 05:45 Est GFR (CKD-EPI)AfAm 63.20 09/12/19 05:45 Est GFR (CKD-EPI)NonAf 54.53 09/12/19 05:45 POC Glucometer 116 UNITS (80-120) 09/12/19 11:50 Random Glucose 87 mg/dL (74-106) 09/12/19 05:45 Calcium 9.0 mg/dL (8.5-10.1) 09/12/19 05:45 Phosphorus 4.2 mg/dL (2.5-4.9) 09/11/19 05:40 Magnesium 2.3 mg/dL (1.8-2.4) 09/11/19 05:40 Total Bilirubin 0.6 mg/dL (0.2-1) 09/10/19 19:00 AST 20 U/L (15-37) 09/10/19 19:00 ALT 31 U/L (13-61) 09/10/19 19:00 Alkaline Phosphatase 73 U/L (45-117) 09/10/19 19:00 Creatine Kinase 261 U/L (26-192) H 09/10/19 19:00 Creatine Kinase Index No Result Required. 09/10/19 19:00 CK-MB (CK-2) < 1.0 ng/mL (0.5-3.6) 09/10/19 19:00 Troponin I < 0.02 ng/ml (0.00-0.05) 09/10/19 19:00 B-Natriuretic Peptide 87.3 pg/ml (5-125) 09/10/19 19:00 Total Protein 7.1 g/dl (6.4-8.2) 09/10/19 19:00 Albumin 4.3 g/dl (3.4-5.0) 09/10/19 19:00 TSH 32.00 uIU/ml (0.358-3.74) H 09/10/19 19:00 Current Medications Generic Name Dose Route Start Last Admin Trade Name Dario PRN Reason Stop Dose Admin Aspirin 81 mg 09/11/19 10:00 09/12/19 09:01 Ecotrin - PO 81 mg DAILY LYDIA Administration Heparin Sodium (Porcine) 5,000 unit 09/11/19 06:00 09/12/19 13:19 Heparin - SQ 5,000 unit TID LYDIA Administration Sodium Chloride 1,000 mls @ 75 mls/hr 09/11/19 00:38 09/12/19 14:46 Normal Saline - IV 75 mls/hr ASDIR LYDIA Administration Levothyroxine Sodium 200 mcg 09/13/19 07:00 Synthroid - PO DAILY@0700 LYDIA Pantoprazole Sodium 40 mg 09/11/19 10:00 09/12/19 09:01 Protonix - PO 40 mg DAILY LYDIA Administration AP: Syncope/Orthostasis Hypothyroidism: TSH 32 T2DM on diet Pt says she has been taking LT4 200 regularly as prescribed. Dose increase to 250 in June which she hasn't filled Increase LT4 250 Monitor BGM NOvolog SS coverage as necessary Consider Cardiology evaluation Will get Renin, Bill Cortisol ACTH in AM Will F/u
--- NOTE | 2019-09-12 16:56 | PN ---
Physical Exam: SUBJECTIVE: Patient seen and examined. This morning complained of mild dizziness when sitting up but was later able to walk to end of the rankin and back with PT without feeling dizzy. Otherwise denies any chest pain, SOB, abd pain, fever, chills. OBJECTIVE: Vital Signs Period Temp Pulse Resp BP Sys/Chaudhry Pulse Ox Last 24 Hr 97.9 F-98.5 F 51-82 18-18 91-125/38-69 94-96 GENERAL: The patient is awake, alert, and fully oriented, in no acute distress. HEAD: Normal with no signs of trauma. EYES: PERRL, EOMI, no scleral icterus ENT: oropharynx clear without exudates, moist mucous membranes. NECK: Trachea midline, full range of motion, supple. LUNGS: Breath sounds equal, clear to auscultation bilaterally, no wheezes, no crackles, no accessory muscle use. HEART: Regular rate and rhythm, S1, S2 without murmur, rub or gallop. ABDOMEN: Soft, nontender, nondistended, normoactive bowel sounds, no guarding EXTREMITIES: 2+ pulses, warm, well-perfused, no edema. NEUROLOGICAL: Normal speech, gait not observed PSYCH: appropriate mood and affect SKIN: Warm, dry Laboratory Results - last 24 hr 09/12/19 09/12/19 09/12/19 05:45 05:45 06:00 WBC 6.2 RBC 3.62 Hgb 11.1 Hct 32.9 MCV 90.7 MCH 30.5 MCHC 33.7 RDW 13.8 Plt Count 291 MPV 7.7 Sodium 143 Potassium 4.0 Chloride 110 H Carbon Dioxide 26 Anion Gap 7 L BUN 23.4 H Creatinine 1.1 Est GFR (CKD-EPI)AfAm 63.20 Est GFR (CKD-EPI)NonAf 54.53 POC Glucometer 91 Random Glucose 87 Calcium 9.0 09/12/19 11:50 WBC RBC Hgb Hct MCV MCH MCHC RDW Plt Count MPV Sodium Potassium Chloride Carbon Dioxide Anion Gap BUN Creatinine Est GFR (CKD-EPI)AfAm Est GFR (CKD-EPI)NonAf POC Glucometer 116 Random Glucose Calcium Active Medications Generic Name Dose Route Start Last Admin Trade Name Freq PRN Reason Stop Dose Admin Aspirin 81 mg 09/11/19 10:00 09/12/19 09:01 Ecotrin - PO 81 mg DAILY LYDIA Administration Heparin Sodium (Porcine) 5,000 unit 09/11/19 06:00 09/12/19 13:19 Heparin - SQ 5,000 unit TID LYDIA Administration Sodium Chloride 1,000 mls @ 75 mls/hr 09/11/19 00:38 09/12/19 14:46 Normal Saline - IV 75 mls/hr ASDIR LYDIA Administration Levothyroxine Sodium 200 mcg 09/13/19 07:00 Synthroid - PO DAILY@0700 LYDIA Pantoprazole Sodium 40 mg 09/11/19 10:00 09/12/19 09:01 Protonix - PO 40 mg DAILY LYDIA Administration ASSESSMENT/PLAN: 59 y/o/f with PMHx of HTN, HLD, DM (insulin naive/10 years tx w diet/exercise only), COPD, GERD, and hypothyroidism c/o episode of syncope during sister's . Hx of similar instance in the past. #Syncopal episode 2/2 Dehydration vs. orthostatic hypotension VS vasovagal syncope - likely vasovagal hypotension as patient has dizziness associated with postural changes - ECHO shows normal EF, no significant pathology noted - Carotid doppler without evidence of hemodynamicaly significant stenosis - Trop negative - CT head without acute intracranial pathology - Cardiology consulted for orthostatic hypotension - Recommend outpatient rhythm monitoring -> cardiology to arrange for 30 day patch monitor as outpatient - Started on NaCl tabs and continue IV hydration. Ok to D/C in morning if stable without positional lightheadedness from Cardiology standpoint #Hypothyroidism - TSH elevated to 32 on admission - Endocrine consulted, appreciate recs - Increase dose of Levothyroxine to 250mg daily - Repeat TSH outpatient, adjust dose accordingly - Check Renin, Aldosterone, Cortisol, ACTH levels in AM #Abdominal pain - No PO intake on day of syncopal episode in the setting of GERD - Pain relieved by food and rest - Started on Protonix #DM - Not currently taking medications and controlled by diet modifications - FS ACHS - Start ISS if needed #HTN - Not currently taking medications and controlled by diet modifications #HLD - Not currently taking medications and controlled by diet modifications #FEN - NS @75mls/hr - Low sodium diet #Prophylaxis - Heparin SQ - Protonix #Disposition - Tele/obs admission Visit type - Emergency Visit Emergency Visit: Yes ED Registration Date: 09/10/19 Care time: The patient presented to the Emergency Department on the above date and was hospitalized for further evaluation of their emergent condition. - New Patient This patient is new to me today: No - Critical Care Critical Care patient: No ATTENDING PHYSICIAN STATEMENT I saw and evaluated the patient. I reviewed the resident's note and discussed the case with the resident. I agree with the resident's findings and plan as documented. SUBJECTIVE: OBJECTIVE: ASSESSMENT AND PLAN:
[2019-09-12] MEDS: SODIUM CHLORIDE 1 GM TABLET PO SCH (17:12)
[2019-09-13] MEDS ORDERED: LEVOTHYROXINE NA 100 MCG TABLET (FP) ONE (05:51)
[2019-09-13] MEDS ORDERED: LEVOTHYROXINE NA 50 MCG TABLET (FP) ONE (05:52)
[2019-09-13] MEDS: SODIUM CHLORIDE 1,000 ML IV SCH (06:25)
[2019-09-13] MEDS: HEPARIN NA (PORCINE) 5,000 UNITS/ML 1ML VIAL SQ SCH (06:26)
[2019-09-13] MEDS ORDERED: LEVOTHYROXINE 200 MCG, LEVOTHYROXINE 50 MCG PO SCH (07:00)
[2019-09-13] MEDS ORDERED: LEVOTHYROXINE NA 100 MCG TABLET (FP) PO SCH ×2 (07:00)
[2019-09-13 07:15] LABS: ALBUMIN 3.4 g/dl (3.4-5.0); BILIRUBIN,TOTAL 0.4 mg/dL (0.2-1); BLOOD UREA NITROGEN 16.6 mg/dL (7-18); CALCIUM 8.8 mg/dL (8.5-10.1); CREATININE 0.9 mg/dL (0.55-1.3); POTASSIUM 3.7 mmol/L (3.5-5.1)
[2019-09-13] MEDS ORDERED: PT OWN MED DRAWER 7, Y5N ONE (09:59)
[2019-09-13] MEDS: SODIUM CHLORIDE 1 GM TABLET PO SCH (10:06)
[2019-09-13] MEDS: PANTOPRAZOLE 40 MG TABLET (FP) PO SCH (10:06)
[2019-09-13] MEDS: ASPIRIN COATED 81 MG TABLET.EC PO SCH (10:06)
--- NOTE | 2019-09-13 10:39 | PN ---
Progress Note (short form) - Note Progress Note: Feels good, no complaints No dizziness Vital Signs Period Temp Pulse Resp BP Sys/Chaudhry Pulse Ox Last 24 Hr 97.9 F-98.5 F 50-75 18-18 94-122/55-64 95-95 PE: AOx3 Neck: Supple, No JVD HEENT: PERRL, EOMI Lungs: CTA CVS: s1S2 Abd: Benign Ext: No edema Neuro: No focal deficit CMP Sodium 144 mmol/L (136-145) 09/13/19 05:40 Potassium 3.7 mmol/L (3.5-5.1) 09/13/19 05:40 Chloride 113 mmol/L (98-107) H 09/13/19 05:40 Carbon Dioxide 25 mmol/L (21-32) 09/13/19 05:40 Anion Gap 6 MMOL/L (8-16) L 09/13/19 05:40 BUN 16.6 mg/dL (7-18) 09/13/19 05:40 Creatinine 0.9 mg/dL (0.55-1.3) 09/13/19 05:40 Est GFR (CKD-EPI)AfAm 80.55 09/13/19 05:40 Est GFR (CKD-EPI)NonAf 69.50 09/13/19 05:40 POC Glucometer 88 UNITS (80-120) 09/13/19 06:24 Random Glucose 89 mg/dL (74-106) 09/13/19 05:40 Calcium 8.8 mg/dL (8.5-10.1) 09/13/19 05:40 Phosphorus 4.2 mg/dL (2.5-4.9) 09/11/19 05:40 Magnesium 2.3 mg/dL (1.8-2.4) 09/11/19 05:40 Total Bilirubin 0.4 mg/dL (0.2-1) 09/13/19 05:40 AST 14 U/L (15-37) L 09/13/19 05:40 ALT 26 U/L (13-61) 09/13/19 05:40 Alkaline Phosphatase 63 U/L (45-117) 09/13/19 05:40 Creatine Kinase 261 U/L (26-192) H 09/10/19 19:00 Creatine Kinase Index No Result Required. 09/10/19 19:00 CK-MB (CK-2) < 1.0 ng/mL (0.5-3.6) 09/10/19 19:00 Troponin I < 0.02 ng/ml (0.00-0.05) 09/10/19 19:00 B-Natriuretic Peptide 87.3 pg/ml (5-125) 09/10/19 19:00 Total Protein 6.0 g/dl (6.4-8.2) L 09/13/19 05:40 Albumin 3.4 g/dl (3.4-5.0) 09/13/19 05:40 TSH 32.00 uIU/ml (0.358-3.74) H 09/10/19 19:00 Current Medications Generic Name Dose Route Start Last Admin Trade Name Norbertoq PRN Reason Stop Dose Admin Aspirin 81 mg 09/11/19 10:00 09/13/19 10:06 Ecotrin - PO 81 mg DAILY LYDIA Administration Heparin Sodium (Porcine) 5,000 unit 09/11/19 06:00 09/13/19 06:26 Heparin - SQ 5,000 unit TID LYDIA Administration Sodium Chloride 1,000 mls @ 75 mls/hr 09/11/19 00:38 09/13/19 06:25 Normal Saline - IV 75 mls/hr ASDIR LYDIA Administration Levothyroxine Sodium 200 mcg/ 250 mcg 09/13/19 07:00 09/13/19 06:26 Levothyroxine Sodium 50 mcg PO 250 mcg DAILY@0700 LYDIA Administration Pantoprazole Sodium 40 mg 09/11/19 10:00 09/13/19 10:06 Protonix - PO 40 mg DAILY LYDIA Administration Sodium Chloride 1 gm 09/12/19 16:45 09/13/19 10:06 Sodium Chloride Tablet - PO 1 gm DAILY LYDIA Administration AP: Syncope/Orthostasis Hypothyroidism: TSH 32 T2DM on diet Cardiology consult noted Pt says she has been taking LT4 200 regularly as prescribed. Dose increase to 250 in June which she hasn't filled Increase LT4 250 Monitor BGM NOvolog SS coverage as necessary Renin, Bill Cortisol ACTH pending Will F/u
--- NOTE | 2019-09-13 11:51 | PN ---
Progress Note (short form) - Note Progress Note: s: no chest pain, palps, dizziness, dyspnea. got up from bed several times and walking in rankin no dizziness. Current Medications Aspirin (Ecotrin -) 81 mg PO DAILY [facility] Last Admin: 09/13/19 10:06 Dose: 81 mg Heparin Sodium (Porcine) (Heparin -) 5,000 unit SQ TID [facility] Last Admin: 09/13/19 06:26 Dose: 5,000 unit Sodium Chloride (Normal Saline -) 1,000 mls @ 75 mls/hr IV ASDIR [facility] Last Admin: 09/13/19 06:25 Dose: 75 mls/hr Levothyroxine Sodium 200 mcg/ (Levothyroxine Sodium 50 mcg) 250 mcg PO DAILY@ 0700 [facility] Last Admin: 09/13/19 06:26 Dose: 250 mcg Pantoprazole Sodium (Protonix -) 40 mg PO DAILY [facility] Last Admin: 09/13/19 10:06 Dose: 40 mg Sodium Chloride (Sodium Chloride Tablet -) 1 gm PO DAILY [facility] Last Admin: 09/13/19 10:06 Dose: 1 gm Vital Signs Period Temp Pulse Resp BP Sys/Chaudhry Pulse Ox Last 24 Hr 97.9 F-98.5 F 50-60 18-18 110-122/55-61 95-95 Constitutional: Yes: Well Nourished, No Distress Eyes: No: Sclera Icterus HENT: No: Nasal Congestion Neck: No: Decreased ROM Respiratory: Yes: CTA Bilaterally. No: Accessory Muscle Use Gastrointestinal: Yes: Normal Bowel Sounds. No: Distention, Hepatomegaly, Palpable Mass, Tenderness Cardiovascular: Yes: Regular Rate and Rhythm JVD: No Carotid Bruit: No PMI: Non-Displaced Heart Sounds: Yes: S1, S2. No: Gallop Murmur: No: Systolic Murmur, Diastolic Murmur Musculoskeletal: Yes: Other (No kyphosis) Extremities: No: Cool, Cyanosis Edema: No Peripheral Pulses: 2+ Left Carotid, 2+ Right Carotid, 2+ Left Doralis Pedis, 2+ Right Dorsalis Pedis Integumentary: No: Jaundice Neurological: Yes: Alert, Oriented (x3) Psychiatric: No: Agitated Assessment/Plan ECG: NSR, normal axis and intervals. NSST-Ts septal leads improved vs prior. qrs voltages lower than prior CXR: clear lungs/pleura CT head: no acute pathology Carotid dopplers: nonobstructive plaque [facility] 06/2019: normal EDP, mild/non-obstructive CAD Stress Echo 05/15: 6 min-->manual for 8 min (9 METs). Non-ischemic stress test by EKG. No echocardiographic evidence of inducible ischemia. Moderate MR (central jet) post-exercise. Incomplete TR doppler signal hence could not accurately estimated peak RV systolic pressure. Echo 03/2019: nl LV/EF. probably hi LAP. RV size ULN, nl RVSF. mod LAE. mod MR, mild-mod TR. no RVSP. tele: NSR, no events syncope: -setting of episode (prolonged fasting state, intense emotional trigger) raises suspicion for vasovagal etiology--harmony given her baseline soft BPs (runs 100s- 110s in office) and orthostatic changes here. -however no typical vasovagal sx's around the time of the event (doesn't rule out this etiology, however), and prodrome of intense racing heartbeat prior raises possibility of arrhythmia causing hypotension. -low risk for malignant arrhythmia given benign coronaries on cath recently, and normal LVEF. -tele benign - plan for 30 day event monitor as outpatient for arrhythmia monitoring - no longer with positional lightheadedness - cont salt tabs - stable for dc from cardiac perspective chronic exertional SOB and chest discomfort: -extensive w/u previously unrevealing including [facility] 07/15, BNP (27), PFTs ( minimal restriction and minimal diffusion defect). unfortunately RHC not performed at time of invasive eval. -previously did not improve with low dose spirono trial (12.5 qd)--dose limited by soft resting bp's HPL: -likely FH (baseline LDL 220s) -cont home atorva hypothyroidism: -TSH 32 -per primary
--- NOTE | 2019-09-13 14:23 | DS ---
Physical Exam: SUBJECTIVE: Patient seen and examined. No longer complains of any dizziness. She is able to walk to the bathroom and back without issues. She states her appetite is better today and is tolerating her diet well. No acute events overnight. She denies any chest pain, SOB, abd pain, dizziness, chills. OBJECTIVE: Vital Signs Period Temp Pulse Resp BP Sys/Chaudhry Pulse Ox Last 24 Hr 97.6 F-98.2 F 50-59 18-18 112-124/55-66 95-98 PHYSICAL EXAM GENERAL: The patient is awake, alert, and fully oriented, in no acute distress. HEAD: Normal with no signs of trauma. EYES: PERRL, EOMI, no scleral icterus ENT: oropharynx clear without exudates, moist mucous membranes. NECK: Trachea midline, full range of motion, supple. LUNGS: Breath sounds equal, clear to auscultation bilaterally, no wheezes, no crackles, no accessory muscle use. HEART: Regular rate and rhythm, S1, S2 without murmur, rub or gallop. ABDOMEN: Soft, nontender, nondistended, normoactive bowel sounds, no guarding EXTREMITIES: 2+ pulses, warm, well-perfused, no edema. NEUROLOGICAL: Normal speech, gait not observed. sensation intact throughout. No positional dizziness elicited PSYCH: appropriate mood and affect SKIN: Warm, dry LABS Laboratory Results - last 24 hr 09/12/19 09/13/19 09/13/19 16:50 05:40 06:24 Sodium 144 Potassium 3.7 Chloride 113 H Carbon Dioxide 25 Anion Gap 6 L BUN 16.6 Creatinine 0.9 Est GFR (CKD-EPI)AfAm 80.55 Est GFR (CKD-EPI)NonAf 69.50 POC Glucometer 98 88 Random Glucose 89 Calcium 8.8 Total Bilirubin 0.4 AST 14 L ALT 26 Alkaline Phosphatase 63 Total Protein 6.0 L Albumin 3.4 09/13/19 12:01 Sodium Potassium Chloride Carbon Dioxide Anion Gap BUN Creatinine Est GFR (CKD-EPI)AfAm Est GFR (CKD-EPI)NonAf POC Glucometer 88 Random Glucose Calcium Total Bilirubin AST ALT Alkaline Phosphatase Total Protein Albumin HOSPITAL COURSE: Date of Admission:09/10/19 Date of Discharge: 09/13/19 59 y/o/f with PMHx of HTN, HLD, DM (insulin naive/10 years tx w diet/exercise only), COPD, GERD, and hypothyroidism c/o episode of syncope during sister's . Her syncopal episode was likely secondary to dehydration/vasovagal hypotension as she was found to have positive orthostatic vital signs on admission. Patient had a head CT completed without any evidence of acute pathology. Patient had a carotid duplex done showing no hemodynamically significant stenosis and an ECHO completed which showed grade I diastolic dysfunction. Patient's TSH was elevated on admission to 32, she takes Levothyroxine at home. Patient's heavy equipment operator/paver, Dr. Herbert, was consulted who advised increasing dose to 250mg from 200mg and have outpatient follow up for repeat testing and dose adjustment. Renin, Cortisol, ACTH, Aldosterone levels were ordered for further workup. Patient's symptoms improved with IV hydration. Patient's home medication doses of Spironolactone and Metoprolol were held while in the hospital. Cardiology was consulted due to orthostatic hypotension and suspected vasovagal etiology as cause for syncope but recommended outpatient follow up for 30 day rhythm monitoring to rule out arrythmia. Patient stable for discharge at this time. Minutes to complete discharge: 36 Discharge Summary Problems reviewed: Yes Reason For Visit: SYNCOPE Current Active Problems Syncope (Acute) Condition: Stable - Instructions Diet, Activity, Other Instructions: You presented to the hospital after a syncopal episode and were found to have orthostatic hypotension. Your dizziness and hypotension improved after we gave you IV fluids. You had a head CT done which showed no acute problems. Further you had a carotid artery ultrasound and cardiac echo which showed no hemodynamically significant abnormalities. Your thyroid stimulating hormone was found to be elevated on admission and you were seen by your heavy equipment operator/paver Dr. Herbert who recommended increasing your home dose of Levothyroxine and following up within two weeks to have further testing done. You were seen by Dr. Brambila, Cardiology, who recommended that you follow up outpatient to have cardiac rhythm monitoring completed. Medication Changes: 1. We increased you dose of Levothyroxine to 250mg daily. Please sampler pickup your new prescription from your pharmacy after discharge. Follow up with Dr. Herbert to see if you need further modifications to your medication. Follow up with the following physicians: 1. Follow up with your primary care doctor within one week. 2. Dr. Herbert, Endocrinology, within one week. 3. Dr. Brambila, Cardiology, within one week. Follow up labs: 1. Your thyroid stimulating hormone was elevated on admission, please follow up with Dr. Herbert as your will need repeat labs drawn for further testing. Activity and Diet 1. You are being discharged to home. Recommend daily exercise to strengthen your muscles. 2. Please continue to monitor your diet as you have a history of high blood pressure, diabetes and high cholesterol. 3. Continue to drink plenty of fluids. Continue all your other medications as prescribed Please return to the ER if you have any signs or symptoms of chest pain, shortness of breath, uncontrollable fever, chills, nausea, vomiting, numbness, tingling, or weakness in any part of your body, changes in vision, or slurred speech. Please return to the ER if symptoms persist, worsen, or new symptoms arise. Referrals: Howard Brambila MD [Staff Physician] - Alka Gomez MD [Primary Care Provider] - Connie Herbert MD [Staff Physician] - Disposition: HOME - Home Medications Comprehensive Discharge Medication List: Ambulatory Orders Aspirin [Aspirin EC] 81 mg PO DAILY 06/28/19 Atorvastatin Ca [Lipitor] 40 mg PO DAILY 09/11/19 Metoprolol Succinate 25 mg PO DAILY 09/11/19 Pantoprazole Sodium [Protonix] 40 mg PO BID 09/11/19 Ranolazine [Ranexa] 500 mg PO BID 09/11/19 Spironolactone 25 mg PO DAILY 09/11/19 Levothyroxine [Synthroid -] 250 mcg PO DAILY@0700 #30 tablet 09/13/19 This patient is new to me today: No Emergency Visit: Yes ED Registration Date: 09/10/19 Care time: The patient presented to the Emergency Department on the above date and was hospitalized for further evaluation of their emergent condition. Critical Care patient: No - Discharge Referral Referred to [facility] No ATTENDING PHYSICIAN STATEMENT I saw and evaluated the patient. I reviewed the resident's note and discussed the case with the resident. I agree with the resident's findings and plan as documented. SUBJECTIVE: OBJECTIVE: ASSESSMENT AND PLAN:
[2019-09-13 15:15] VITALS: BP 98/43; PULSE 71; TEMP 98.6
--- NOTE | 2019-09-13 18:01 | PN ---
Teaching Attending Note Name of Resident: Hansa Gotti ATTENDING PHYSICIAN STATEMENT I saw and evaluated the patient. I reviewed the resident's note and discussed the case with the resident. I agree with the resident's findings and plan as documented. SUBJECTIVE: No more lightheadedness, no positional/orthostatic symptoms. No CP/ palpitations. No headache/visual disturbance/focal limb numbness/weakness/ tingling. OBJECTIVE: Afebrile, Hemodynamically Stable Last Vital Signs Temp Pulse Resp BP Pulse Ox 98.6 F 71 18 98/43 L 98 09/13/19 14:00 09/13/19 14:00 09/13/19 14:00 09/13/19 14:00 09/13/19 09:00 Heart - S1, S2, RRR Lungs - clear to auscultation. No crackles/wheeze. Abdomen - Soft, non-tender. Bowel Sounds normal Extremities - no edema, no calf tenderness. Neuro - AAO x 3. REZA. EOMI. Tone/Power normal all extremities. Laboratory Results - last 24 hr 09/13/19 09/13/19 09/13/19 05:40 06:24 12:01 Sodium 144 Potassium 3.7 Chloride 113 H Carbon Dioxide 25 Anion Gap 6 L BUN 16.6 Creatinine 0.9 Est GFR (CKD-EPI)AfAm 80.55 Est GFR (CKD-EPI)NonAf 69.50 POC Glucometer 88 88 Random Glucose 89 Calcium 8.8 Total Bilirubin 0.4 AST 14 L ALT 26 Alkaline Phosphatase 63 Total Protein 6.0 L Albumin 3.4 Discharge Medications Medication Instructions Recorded Aspirin [Aspirin EC] 81 mg PO DAILY 06/28/19 Atorvastatin Ca [Lipitor] 40 mg PO DAILY 09/11/19 Metoprolol Succinate 25 mg PO DAILY 09/11/19 Pantoprazole Sodium [Protonix] 40 mg PO BID 09/11/19 Ranolazine [Ranexa] 500 mg PO BID 09/11/19 Levothyroxine [Synthroid -] 250 mcg PO DAILY@0700 #30 tablet 09/13/19 ASSESSMENT AND PLAN: 59 year old female with history of HTN, PUD, severe Hypothyroidism (follows with Dr. Herbert), CAD s/p NM, admitted after an episode of syncope at the of her sister. Found to Orthostatics positive with associated symptoms. 1. Syncope, likely vasovagal. Found to have Postural Hypotension - now resolved , no further symptoms on standing/walking. ?sec to dehydration/vasovagal versus endocrine dysfunction/autonomic neuropathy Head CT - no acute intracranial findings. EKG - NSR. Carotid Duplex - plaques R common carotid but no hemodynamically significant stenosis. No telemonitoring events. Echo - Grade I diastolic dysfunction, moderate MR Medically clear for discharge by Cardiology with recommendation for 30 day event monitor as outpatient for arrhythmia monitoring. 2. PUD - Continue PPI 3. Hypothyroidism TSH 32 - dose of Levothyroxine increased to 250mcg ? endocrine dysfunction contributing factor to orthostasis No evidence of myxedema crisis. Patient's jewelry consultant Dr. Herbert recommends continuing Synthroid. aldactone/Cortisol and ACTH levels sent, pending, for out-patient follow up. 4. HTN - normally on Spironolactone and Metoprolol - will hold Spironolactone on discharge due to orthostasis and slowly reintroduce as out-patient. 5. CAD s/p NM - Continue Aspirin/Statin. Medically Stable and optimized with no further orthostasis/dizziness.
== END 2019-09-13 15:39 | disposition home or self-care (01) ==
LOC: JER 16:55 → JERBED 22:07 → J4S 09-11 22:54
PROVIDERS: ADMIT Internal Medicine
PROC: 3E0337Z Introduction of Electrolytic and Water Balance Substance into Peripheral Vein, Percutaneous Approach (ICD-10-PCS; principal; 2019-09-10)
PROC: 3E013GC Introduction of Other Therapeutic Substance into Subcutaneous Tissue, Percutaneous Approach (ICD-10-PCS; 2019-09-10)
DX: R55 Syncope and collapse (principal); I10 Essential (primary) hypertension; I25.2 Old myocardial infarction; I25.10 Atherosclerotic heart disease of native coronary artery without angina pectoris; E78.5 Hyperlipidemia, unspecified; E89.0 Postprocedural hypothyroidism; K21.9 Gastro-esophageal reflux disease without esophagitis; J44.9 Chronic obstructive pulmonary disease, unspecified; E11.9 Type 2 diabetes mellitus without complications; N64.4 Mastodynia; K27.9 Peptic ulcer, site unspecified, unspecified as acute or chronic, without hemorrhage or perforation; R06.00 Dyspnea, unspecified; R07.89 Other chest pain; Z79.82 Long term (current) use of aspirin
CPT/HCPCS: 36415; 70450-TC; 71045-TC-FY; 80048; 80053; 81003; 82024; 82088; 82533; 82550; 82553; 82962; 83735; 83880; 84100; 84244; 84443; 84484; 85025; 85027; 93005; 93010; 93306-TC; 93880-TC; 96360; 96361; 96372; 97116-GP; 97161-GP; 99285-25; G0378; J1644; J7030

== ENCOUNTER 2020-10-22 11:50 | Observation (INO) | payer OTHER ==
[2020-10-22] MEDS ORDERED: ASPIRIN 81 MG CHEWABLE TABLETS PO ONE ×2 (12:38→14:01)
[2020-10-22] MEDS ORDERED: ASPIRIN 81 MG CHEWABLE TABLETS ONE (14:10)
[2020-10-22 14:32] LABS: EOS % 4.3 % (0-4.5); HEMATOCRIT 37.5 % (32.4-45.2); HEMOGLOBIN 12.6 GM/dL (10.7-15.3); LYMPH % 38.8 % (8-40); MCH 30.2 pg (25.7-33.7); MCHC 33.5 g/dl (32.0-36.0); MEAN CELL VOLUME 90.3 fl (80-96); MEAN PLT VOLUME 7.9 fl (7.5-11.1); NEUT % 46.9 % (42.8-82.8); PLATELET COUNT 303 K/MM3 (134-434); RBC 4.15 M/mm3 (3.60-5.2); RDW 13.8 % (11.6-15.6); WHITE BLOOD COUNT 6.2 K/mm3 (4.0-10.0)
[2020-10-22] MEDS ORDERED: ACETAMINOPHEN 1000 MG/100 ML VIAL (NON FORMULARY) IVPB ONE (14:33)
[2020-10-22 14:39] LABS: INR 0.95 (0.83-1.09); PROTHROMBIN TIME (PATIENT) 11.7 SEC (9.7-13.0)
[2020-10-22 14:41] LABS: CHLORIDE 105 mmol/L (98-107); POTASSIUM 4.7 mmol/L (3.5-5.1); SODIUM 137 mmol/L (136-145)
[2020-10-22] MEDS ORDERED: ACETAMINOPHEN INJECTION 100 ML IVPB ONE (14:41)
[2020-10-22 14:42] LABS: ACTIVATED PTT 28.7 SECONDS (25.2-36.5)
[2020-10-22 14:43] LABS: CALCIUM 9.3 mg/dL (8.5-10.1)
[2020-10-22 14:44] LABS: ALBUMIN 3.8 g/dl (3.4-5.0); ANION GAP 5 MMOL/L (8-16); BLOOD UREA NITROGEN 12.2 mg/dL (7-18); CO2 27 mmol/L (21-32); GLUCOSE,RANDOM 94 mg/dL (74-106); MAGNESIUM 2.3 mg/dL (1.8-2.4)
[2020-10-22 14:47] LABS: SGOT/AST 20 U/L (15-37); SGPT/ALT 21 U/L (13-61)
[2020-10-22 14:48] LABS: BILIRUBIN,TOTAL 0.4 mg/dL (0.2-1); TOT PROT 7.3 g/dl (6.4-8.2)
[2020-10-22 14:50] LABS: ALK PHOS 79 U/L (45-117)
[2020-10-22] MEDS ORDERED: INSULIN SLIDING SCALE (NOVOLOG) 1 VIAL SQ SCH (16:30)
[2020-10-22 18:40] LABS: CHOLESTEROL 400 mg/dL (50-200)
[2020-10-22 18:41] LABS: TRIGLYCERIDES 295 mg/dL (0-150)
[2020-10-22 18:42] LABS: LDL CHOLESTEROL (ONLY SJRH) 275 mg/dL (5-100)
[2020-10-22 18:43] LABS: HDL CHOLESTEROL 51 mg/dL (40-60)
[2020-10-22] MEDS ORDERED: ATORVASTATIN CA 40 MG TABLET (FP) PO SCH (22:00)
[2020-10-22] MEDS ORDERED: ATORVASTATIN CA 40 MG TABLET (FP) ONE (22:27)
[2020-10-22] MEDS ORDERED: PANTOPRAZOLE 40 MG TABLET ONE (22:27)
[2020-10-22] MEDS: PANTOPRAZOLE 40 MG TABLET PO SCH (22:30)
[2020-10-23 05:49] VITALS: BMI 34.1
[2020-10-23] MEDS ORDERED: LEVOTHYROXINE 200 MCG, LEVOTHYROXINE 50 MCG PO SCH ×2 (07:00→07:03)
[2020-10-23] MEDS ORDERED: LEVOTHYROXINE NA 50 MCG TABLET (FP) PO SCH (07:00)
[2020-10-23 07:30] LABS: BASO % 1.1 % (0-2.0); EOS % 4.2 % (0-4.5); HEMATOCRIT 35.3 % (32.4-45.2); LYMPH % 41.9 % (8-40); MCH 30.3 pg (25.7-33.7); MCHC 33.9 g/dl (32.0-36.0); MEAN CELL VOLUME 89.4 fl (80-96); MEAN PLT VOLUME 7.8 fl (7.5-11.1); MONO % 8.5 % (3.8-10.2); NEUT % 44.3 % (42.8-82.8); PLATELET COUNT 303 K/MM3 (134-434); RBC 3.95 M/mm3 (3.60-5.2); RDW 13.7 % (11.6-15.6)
[2020-10-23 08:03] LABS: CALCIUM 8.9 mg/dL (8.5-10.1)
[2020-10-23 08:04] LABS: ALBUMIN 3.6 g/dl (3.4-5.0); BLOOD UREA NITROGEN 15.6 mg/dL (7-18)
[2020-10-23 08:07] LABS: CREATININE 1.1 mg/dL (0.55-1.3)
[2020-10-23 08:08] LABS: BILIRUBIN,TOTAL 0.6 mg/dL (0.2-1)
[2020-10-23 08:09] LABS: TOT PROT 6.8 g/dl (6.4-8.2)
[2020-10-23] MEDS: PANTOPRAZOLE 40 MG TABLET PO SCH (09:11)
[2020-10-23] MEDS ORDERED: RANOLAZINE E.R. 500 MG TABLET (FP) PO SCH (10:00)
[2020-10-23] MEDS ORDERED: HEPARIN NA (PORCINE) 5,000 UNITS/ML 1ML VIAL SQ SCH (10:00)
[2020-10-23] MEDS ORDERED: metoPROLOL SUCCINATE 25 MG TAB.SR.24H (FP) PO SCH (10:00)
[2020-10-23] MEDS ORDERED: FLU VACCINE (FLULAVAL) PF 60 MCG/0.5 ML SYRINGE 2020-2021 IM ONE (10:00)
[2020-10-23] MEDS ORDERED: ASPIRIN COATED 81 MG TABLET.EC PO SCH (10:00)
[2020-10-23] MEDS ORDERED: ATORVASTATIN CA 80 MG TABLET (FP) PO SCH (12:21)
[2020-10-23 14:55] VITALS: BP 109/68; PULSE 70; TEMP 98.6
== END 2020-10-23 18:42 | disposition home or self-care (01) ==
LOC: JER 11:50 → JERBED 16:24 → J4W 10-23 05:31
PROVIDERS: ADMIT Internal Medicine; ATTEND Nurse Practitioner Acute Care
PROC: 3E033NZ Introduction of Analgesics, Hypnotics, Sedatives into Peripheral Vein, Percutaneous Approach (ICD-10-PCS; principal; 2020-10-22)
PROC: 3E023GC Introduction of Other Therapeutic Substance into Muscle, Percutaneous Approach (ICD-10-PCS; 2020-10-22)
PROC: 3E0234Z Introduction of Serum, Toxoid and Vaccine into Muscle, Percutaneous Approach (ICD-10-PCS; 2020-10-22)
DX: I25.10 Atherosclerotic heart disease of native coronary artery without angina pectoris (principal); R07.9 Chest pain, unspecified; E11.9 Type 2 diabetes mellitus without complications; E78.5 Hyperlipidemia, unspecified; J44.9 Chronic obstructive pulmonary disease, unspecified; E66.8 Other obesity; Z68.34 Body mass index [BMI] 34.0-34.9, adult; E03.9 Hypothyroidism, unspecified; Z86.39 Personal history of other endocrine, nutritional and metabolic disease; I11.9 Hypertensive heart disease without heart failure; Z29.9 Encounter for prophylactic measures, unspecified; Z20.822 Contact with and (suspected) exposure to COVID-19; Z23 Encounter for immunization
CPT/HCPCS: 36415; 71046-TC-FY; 80053; 80061; 82550; 82553; 83036; 83721; 83735; 83880; 84443; 84484; 85025; 85610; 85730; 93005; 93010; 93306-TC; 96372; 96374; 99285-25; C9803; G0378; J0131; J1644; Q2036; U0003

== ENCOUNTER 2020-11-29 10:41 | Emergency (ER) | payer OTHER ==
[2020-11-29 10:50] VITALS: BMI 33.1
[2020-11-29 11:33] VITALS: PULSE 60
[2020-11-29] MEDS ORDERED: ACETAMINOPHEN 500 MG TABLET (FP) PO ONE (11:49)
[2020-11-29] MEDS ORDERED: ACETAMINOPHEN 500 MG TABLET (FP) ONE (12:06)
[2020-11-29 13:20] LABS: BASO % 1.3 % (0-2.0); EOS % 3.9 % (0-4.5); HEMATOCRIT 34.1 % (32.4-45.2); HEMOGLOBIN 11.4 GM/dL (10.7-15.3); LYMPH % 35.5 % (8-40); MCH 30.4 pg (25.7-33.7); MCHC 33.5 g/dl (32.0-36.0); MEAN CELL VOLUME 90.9 fl (80-96); MONO % 9.5 % (3.8-10.2); NEUT % 49.8 % (42.8-82.8); PLATELET COUNT 256 K/MM3 (134-434); RBC 3.75 M/mm3 (3.60-5.2); RDW 14.4 % (11.6-15.6); WHITE BLOOD COUNT 6.2 K/mm3 (4.0-10.0)
[2020-11-29 13:45] LABS: CHLORIDE 108 mmol/L (98-107); SODIUM 139 mmol/L (136-145)
[2020-11-29 13:47] LABS: BLOOD UREA NITROGEN 15.6 mg/dL (7-18)
[2020-11-29 13:48] LABS: ALBUMIN 3.9 g/dl (3.4-5.0); ANION GAP 5 MMOL/L (8-16); CO2 25 mmol/L (21-32); GLUCOSE,RANDOM 92 mg/dL (74-106)
[2020-11-29 13:50] LABS: SGOT/AST 11 U/L (15-37); SGPT/ALT 20 U/L (13-61)
[2020-11-29 13:51] LABS: CREATININE 1.1 mg/dL (0.55-1.3)
[2020-11-29 13:52] LABS: BILIRUBIN,TOTAL 0.5 mg/dL (0.2-1)
[2020-11-29 13:53] LABS: ALK PHOS 72 U/L (45-117)
[2020-11-29 14:31] VITALS: BP 123/64; TEMP 98.4
== END 2020-11-29 14:25 | disposition home or self-care (01) ==
LOC: JER 10:41 → SUPCPDRO 10:41 → JER 14:25
DX: R51.9 Headache, unspecified (principal); R42 Dizziness and giddiness; R11.10 Vomiting, unspecified
CPT/HCPCS: 36415; 70450-TC; 80053; 84439; 84443; 84481; 84484; 85025; 93005; 93010; 99285-25; C9803; U0003

== ENCOUNTER 2021-01-07 16:28 | Emergency (ER) | payer OTHER ==
[2021-01-07 17:10] VITALS: TEMP 98.1; BMI 33.6
[2021-01-07] MEDS ORDERED: ACETAMINOPHEN 1000 MG/100 ML VIAL (NON FORMULARY) IVPB ONE (18:20)
[2021-01-07] MEDS ORDERED: ACETAMINOPHEN INJECTION 100 ML IVPB ONE (18:24)
[2021-01-07 18:45] LABS: BASO % 0.7 % (0-2.0); EOS % 3.7 % (0-4.5); HEMATOCRIT 35.6 % (32.4-45.2); LYMPH % 30.9 % (8-40); MCH 30.4 pg (25.7-33.7); MCHC 33.8 g/dl (32.0-36.0); MEAN CELL VOLUME 89.9 fl (80-96); MEAN PLT VOLUME 7.6 fl (7.5-11.1); MONO % 8.4 % (3.8-10.2); NEUT % 56.3 % (42.8-82.8); PLATELET COUNT 322 K/MM3 (134-434); RBC 3.96 M/mm3 (3.60-5.2); RDW 13.7 % (11.6-15.6); WHITE BLOOD COUNT 8.3 K/mm3 (4.0-10.0)
[2021-01-07 19:01] LABS: CHLORIDE 108 mmol/L (98-107); SODIUM 139 mmol/L (136-145)
[2021-01-07 19:03] LABS: ALBUMIN 3.8 g/dl (3.4-5.0); ANION GAP 4 MMOL/L (8-16); CALCIUM 9.3 mg/dL (8.5-10.1); CO2 27 mmol/L (21-32)
[2021-01-07 19:04] LABS: BLOOD UREA NITROGEN 21.2 mg/dL (7-18); GLUCOSE,RANDOM 95 mg/dL (74-106)
[2021-01-07 19:06] LABS: SGPT/ALT 19 U/L (13-61)
[2021-01-07 19:07] LABS: CREATININE 1.1 mg/dL (0.55-1.3); SGOT/AST 15 U/L (15-37)
[2021-01-07 19:08] LABS: BILIRUBIN,TOTAL 0.3 mg/dL (0.2-1); TOT PROT 7.2 g/dl (6.4-8.2)
[2021-01-07 19:09] LABS: ALK PHOS 75 U/L (45-117)
[2021-01-07] MEDS ORDERED: SODIUM CHLORIDE 500 ML IV STA (19:39)
[2021-01-07 21:10] VITALS: BP 116/56; PULSE 61
== END 2021-01-07 21:22 | disposition home or self-care (01) ==
LOC: JER 16:28
PROC: 3E0333Z Introduction of Anti-inflammatory into Peripheral Vein, Percutaneous Approach (ICD-10-PCS; principal; 2021-01-07)
PROC: 3E0337Z Introduction of Electrolytic and Water Balance Substance into Peripheral Vein, Percutaneous Approach (ICD-10-PCS; 2021-01-07)
DX: R51.9 Headache, unspecified (principal)
CPT/HCPCS: 36415; 70450-TC; 80053; 82550; 82553; 84484; 85025; 93005; 93010; 99285-25; J0131

== ENCOUNTER 2021-11-12 12:35 | Observation (INO) | payer OTHER ==
[2021-11-12] MEDS ORDERED: ACETAMINOPHEN 1000 MG/100 ML BAG IVPB ONE (13:45)
[2021-11-12] MEDS ORDERED: ACETAMINOPHEN INJECTION 100 ML IVPB ONE (13:59)
[2021-11-12 14:07] LABS: BASO % 0.7 % (0-2.0); HEMATOCRIT 36.9 % (32.4-45.2); HEMOGLOBIN 12.1 GM/dL (10.7-15.3); MCH 29.9 pg (25.7-33.7); MCHC 32.9 g/dl (32.0-36.0); MEAN CELL VOLUME 91.1 fl (80-96); MEAN PLT VOLUME 7.4 fl (7.5-11.1); MONO % 8.2 % (3.8-10.2); NEUT % 57.1 % (42.8-82.8); PLATELET COUNT 299 10^3/uL (134-434); RBC 4.05 M/mm3 (3.60-5.2); RDW 13.5 % (11.6-15.6); WHITE BLOOD COUNT 6.4 K/mm3 (4.0-10.0)
[2021-11-12 14:20] LABS: ACTIVATED PTT 28.7 SECONDS (25.2-36.5); INR 0.94 (0.83-1.09); PROTHROMBIN TIME (PATIENT) 10.8 SEC (9.7-13.0)
[2021-11-12 14:41] LABS: ALBUMIN 3.7 g/dl (3.4-5.0); BLOOD UREA NITROGEN 23.7 mg/dL (7-18); CALCIUM 9.4 mg/dL (8.5-10.1); CREATININE 0.8 mg/dL (0.55-1.3); MAGNESIUM 2.3 mg/dL (1.8-2.4)
[2021-11-12 14:43] LABS: BILIRUBIN,TOTAL 0.4 mg/dL (0.2-1); TOT PROT 6.7 g/dl (6.4-8.2)
[2021-11-12] MEDS ORDERED: ENOXAPARIN NA (PORCINE) 80 MG/0.8 ML DISP.SYRIN SQ ONE (15:51)
[2021-11-12] MEDS ORDERED: ENOXAPARIN NA (PORCINE) 100 MG/1 ML DISP.SYRIN SQ ONE (16:00)
[2021-11-12] MEDS ORDERED: ACETAMINOPHEN 325 MG TABLET (FP) ONE (20:32)
[2021-11-12] MEDS: ACETAMINOPHEN 325 MG TABLET (FP) PO PRN (20:38)
[2021-11-12] MEDS: APIXABAN 5 MG TABLET PO SCH (21:44)
[2021-11-12] MEDS ORDERED: ATORVASTATIN CA 40 MG TABLET (FP) PO SCH (22:00)
[2021-11-12] MEDS: INSULIN SLIDING SCALE (NOVOLOG) 1 VIAL SQ SCH (22:06)
[2021-11-13 00:31] VITALS: BMI 33.3
[2021-11-13] MEDS: INSULIN SLIDING SCALE (NOVOLOG) 1 VIAL SQ SCH ×3 (06:14→18:02)
[2021-11-13] MEDS ORDERED: LEVOTHYROXINE NA 150 MCG TABLET PO SCH (07:00)
[2021-11-13] MEDS: ACETAMINOPHEN 325 MG TABLET (FP) PO PRN (07:01)
[2021-11-13 08:07] LABS: HEMATOCRIT 35.8 % (32.4-45.2); HEMOGLOBIN 11.8 GM/dL (10.7-15.3); MEAN CELL VOLUME 91.1 fl (80-96); MEAN PLT VOLUME 7.4 fl (7.5-11.1); PLATELET COUNT 300 10^3/uL (134-434); RBC 3.93 M/mm3 (3.60-5.2); RDW 13.7 % (11.6-15.6); WHITE BLOOD COUNT 5.7 K/mm3 (4.0-10.0)
[2021-11-13 08:25] LABS: BLOOD UREA NITROGEN 23.3 mg/dL (7-18); MAGNESIUM 2.4 mg/dL (1.8-2.4)
[2021-11-13 08:27] LABS: PHOSPHOROUS 4.3 mg/dL (2.5-4.9)
[2021-11-13 08:28] LABS: CREATININE 1.2 mg/dL (0.55-1.3)
[2021-11-13] MEDS ORDERED: metoPROLOL SUCCINATE 25 MG TAB.SR.24H (FP) PO SCH (10:00)
[2021-11-13] MEDS ORDERED: ASPIRIN COATED 81 MG TABLET.EC PO SCH (10:00)
[2021-11-13] MEDS ORDERED: FLU VACC QS2021-22(6MOS UP)/PF 60 MCG/0.5 ML SYRINGE IM ONE (11:00)
[2021-11-13] MEDS: APIXABAN 5 MG TABLET PO SCH (12:40)
[2021-11-13 15:42] VITALS: BP 126/67; PULSE 60; TEMP 98.8
== END 2021-11-13 18:24 | disposition home or self-care (01) ==
LOC: JER 12:35 → JERBED 17:17 → J4W 21:12
PROVIDERS: ADMIT Internal Medicine; ATTEND Nurse Practitioner Family
PROC: 3E033NZ Introduction of Analgesics, Hypnotics, Sedatives into Peripheral Vein, Percutaneous Approach (ICD-10-PCS; principal; 2021-11-12)
PROC: 3E023GC Introduction of Other Therapeutic Substance into Muscle, Percutaneous Approach (ICD-10-PCS; 2021-11-12)
PROC: 3E0234Z Introduction of Serum, Toxoid and Vaccine into Muscle, Percutaneous Approach (ICD-10-PCS; 2021-11-12)
DX: I25.10 Atherosclerotic heart disease of native coronary artery without angina pectoris (principal); I11.9 Hypertensive heart disease without heart failure; E78.5 Hyperlipidemia, unspecified; E11.9 Type 2 diabetes mellitus without complications; R07.9 Chest pain, unspecified; R51.9 Headache, unspecified; E66.9 Obesity, unspecified; Z68.33 Body mass index [BMI] 33.0-33.9, adult; I25.2 Old myocardial infarction; E03.9 Hypothyroidism, unspecified; J44.9 Chronic obstructive pulmonary disease, unspecified; W18.39XA Other fall on same level, initial encounter; Y93.89 Activity, other specified; Y92.89 Other specified places as the place of occurrence of the external cause; Z91.013 Allergy to seafood
CPT/HCPCS: 36415; 70450-TC; 71275-TC; 72125-TC; 74174-TC; 80048; 80053; 82962; 83735; 84100; 84439; 84443; 84484; 85025; 85027; 85610; 85730; 90686; 93005; 93010; 93306-TC; 93880-TC; 96372; 96374; 97116-GP; 97162-GP; 99285-25; C9803; G0378; Q9967; U0003; U0005

== ENCOUNTER 2022-04-24 14:05 | Inpatient (IN) | payer OTHER ==
[2022-04-24 15:08] LABS: BASO % 0.8 % (0-2.0); EOS % 3.9 % (0-4.5); HEMATOCRIT 32.8 % (32.4-45.2); HEMOGLOBIN 11.2 GM/dL (10.7-15.3); LYMPH % 37.9 % (8-40); MCH 29.7 pg (25.7-33.7); MCHC 34.1 g/dl (32.0-36.0); MEAN CELL VOLUME 87.1 fl (80-96); MEAN PLT VOLUME 7.2 fl (7.5-11.1); MONO % 10.1 % (3.8-10.2); NEUT % 47.3 % (42.8-82.8); PLATELET COUNT 308 10^3/uL (134-434); RBC 3.77 M/mm3 (3.60-5.2); RDW 13.1 % (11.6-15.6); WHITE BLOOD COUNT 6.2 K/mm3 (4.0-10.0)
[2022-04-24 15:15] LABS: INR 1.03 (0.83-1.09); PROTHROMBIN TIME (PATIENT) 11.8 SEC (9.7-13.0)
[2022-04-24 15:18] LABS: ACTIVATED PTT 29.5 SECONDS (25.2-36.5)
[2022-04-24] MEDS ORDERED: ACETAMINOPHEN 1000 MG/100 ML BAG IVPB ONE (15:18)
[2022-04-24 15:26] LABS: CHLORIDE 107 mmol/L (98-107); SODIUM 139 mmol/L (136-145)
[2022-04-24 15:28] LABS: ALBUMIN 3.5 g/dl (3.4-5.0); ANION GAP 9 MMOL/L (8-16); CO2 23 mmol/L (21-32)
[2022-04-24 15:29] LABS: BLOOD UREA NITROGEN 17.4 mg/dL (7-18)
[2022-04-24 15:30] LABS: GLUCOSE,RANDOM 105 mg/dL (74-106)
[2022-04-24 15:31] LABS: CREATININE 1.2 mg/dL (0.55-1.3); SGPT/ALT 18 U/L (13-61)
[2022-04-24] MEDS ORDERED: ACETAMINOPHEN INJECTION 100 ML IVPB ONE (15:31)
[2022-04-24 15:32] LABS: SGOT/AST 15 U/L (15-37)
[2022-04-24 15:33] LABS: CHOLESTEROL 289 mg/dL (50-200); TOT PROT 6.5 g/dl (6.4-8.2); TRIGLYCERIDES 328 mg/dL (0-150)
[2022-04-24 15:34] LABS: BILIRUBIN,TOTAL 0.4 mg/dL (0.2-1); LDL CHOLESTEROL (ONLY SJRH) 194 mg/dL (5-100)
[2022-04-24 15:35] LABS: ALK PHOS 73 U/L (45-117); HDL CHOLESTEROL 46 mg/dL (40-60)
[2022-04-24] MEDS: SODIUM CHLORIDE 1,000 ML IV SCH (15:41)
[2022-04-24] MEDS ORDERED: ATORVASTATIN CA 40 MG TABLET (FP) ONE (22:42)
[2022-04-24] MEDS ORDERED: RANOLAZINE E.R. 500 MG TABLET (FP) ONE (22:42)
[2022-04-24] MEDS: RANOLAZINE E.R. 500 MG TABLET (FP) PO SCH (23:26)
[2022-04-24] MEDS: ATORVASTATIN CA 40 MG TABLET (FP) PO SCH (23:26)
[2022-04-25 08:57] LABS: CHLORIDE 111 mmol/L (98-107); SODIUM 144 mmol/L (136-145)
[2022-04-25 08:58] LABS: CALCIUM 8.9 mg/dL (8.5-10.1)
[2022-04-25 08:59] LABS: ANION GAP 6 MMOL/L (8-16); BLOOD UREA NITROGEN 16.7 mg/dL (7-18); CO2 27 mmol/L (21-32); GLUCOSE,RANDOM 98 mg/dL (74-106)
[2022-04-25 09:02] LABS: CREATININE 1.2 mg/dL (0.55-1.3)
[2022-04-25] MEDS: EZETIMIBE 10 MG TABLET (FP) PO SCH (10:06)
[2022-04-25] MEDS: OMEGA-3 ACID ETHYL ESTERS (FATTY-ACIDS) 1 GM CAPSULE (FP) PO SCH ×2 (10:07→22:17)
[2022-04-25] MEDS ORDERED: APIXABAN 5 MG TABLET ONE (10:15)
[2022-04-25] MEDS ORDERED: RANOLAZINE E.R. 500 MG TABLET (FP) ONE (10:16)
[2022-04-25] MEDS ORDERED: metoPROLOL SUCCINATE 25 MG TAB.SR.24H (FP) PO ONE (10:16)
[2022-04-25] MEDS: metoPROLOL SUCCINATE 25 MG TAB.SR.24H (FP) PO SCH (10:17)
[2022-04-25] MEDS: RANOLAZINE E.R. 500 MG TABLET (FP) PO SCH ×2 (10:17→22:17)
[2022-04-25] MEDS: APIXABAN 5 MG TABLET PO SCH ×2 (10:17→22:17)
[2022-04-25 11:14] VITALS: BMI 33.8
[2022-04-25] MEDS: SODIUM CHLORIDE 1,000 ML IV SCH (16:29)
[2022-04-25] MEDS: ACETAMINOPHEN 325 MG TABLET (FP) PO PRN (18:29)
[2022-04-25] MEDS: ATORVASTATIN CA 40 MG TABLET (FP) PO SCH (22:17)
[2022-04-26] MEDS: APIXABAN 5 MG TABLET PO SCH ×2 (09:36→21:41)
[2022-04-26] MEDS: EZETIMIBE 10 MG TABLET (FP) PO SCH (09:36)
[2022-04-26] MEDS: metoPROLOL SUCCINATE 25 MG TAB.SR.24H (FP) PO SCH (09:36)
[2022-04-26] MEDS: OMEGA-3 ACID ETHYL ESTERS (FATTY-ACIDS) 1 GM CAPSULE (FP) PO SCH ×2 (09:36→21:41)
[2022-04-26] MEDS: RANOLAZINE E.R. 500 MG TABLET (FP) PO SCH ×2 (09:36→21:41)
[2022-04-26] MEDS: ACETAMINOPHEN 325 MG TABLET (FP) PO PRN (13:50)
[2022-04-26] MEDS: ATORVASTATIN CA 40 MG TABLET (FP) PO SCH (21:41)
[2022-04-27 09:20] VITALS: BP 109/52; PULSE 66; RESP 16; TEMP 98.7
[2022-04-27] MEDS: OMEGA-3 ACID ETHYL ESTERS (FATTY-ACIDS) 1 GM CAPSULE (FP) PO SCH (09:20)
[2022-04-27] MEDS: metoPROLOL SUCCINATE 25 MG TAB.SR.24H (FP) PO SCH (09:20)
[2022-04-27] MEDS: EZETIMIBE 10 MG TABLET (FP) PO SCH (09:20)
[2022-04-27] MEDS: RANOLAZINE E.R. 500 MG TABLET (FP) PO SCH (09:20)
[2022-04-27] MEDS: APIXABAN 5 MG TABLET PO SCH (09:20)
[2022-04-27] MEDS: ACETAMINOPHEN 325 MG TABLET (FP) PO PRN (11:11)
[2022-04-28] MEDS: SODIUM CHLORIDE 1,000 ML IV SCH (09:25)
== END 2022-04-27 16:37 | disposition home or self-care (01) | DRG 69 ==
LOC: JER 14:05 → JERBED 16:45 → J4W 04-25 10:45
PROVIDERS: ADMIT Internal Medicine
DX: G45.9 Transient cerebral ischemic attack, unspecified (principal); G81.94 Hemiplegia, unspecified affecting left nondominant side; E11.9 Type 2 diabetes mellitus without complications; E03.9 Hypothyroidism, unspecified; I10 Essential (primary) hypertension; E66.9 Obesity, unspecified; E78.5 Hyperlipidemia, unspecified; I25.10 Atherosclerotic heart disease of native coronary artery without angina pectoris; R47.81 Slurred speech; R20.0 Anesthesia of skin; E88.81 Metabolic syndrome and other insulin resistance; R06.02 Shortness of breath; R29.810 Facial weakness; R51.9 Headache, unspecified; R47.1 Dysarthria and anarthria; Z98.61 Coronary angioplasty status
CPT/HCPCS: 36415; 70450-TC; 70496-TC; 70498-TC; 70551-TC; 71045-TC-FY; 80048; 80053; 80061; 82550; 82553; 82962; 83036; 84484; 85025; 85610; 85730; 86850; 86900; 86901; 93005; 93010; 93880-TC; 97116-GP; 97161-GP; 99285-25; C9803-CS; Q9967; U0003; U0005

== ENCOUNTER 2023-06-15 15:46 | Observation (INO) | payer OTHER ==
[2023-06-15 17:52] LABS: BASO % 0.5 % (0-2.0); EOS % 3.7 % (0-4.5); HEMATOCRIT 30.3 % (32.4-45.2); HEMOGLOBIN 10.4 GM/dL (10.7-15.3); LYMPH % 37.8 % (8-40); MCHC 34.3 g/dl (32.0-36.0); MEAN CELL VOLUME 87.5 fl (80-96); MEAN PLT VOLUME 7.4 fl (7.5-11.1); MONO % 13.2 % (3.8-10.2); NEUT % 44.8 % (42.8-82.8); PLATELET COUNT 290 10^3/uL (134-434); RBC 3.46 M/mm3 (3.60-5.2); RDW 14.1 % (11.6-15.6); WHITE BLOOD COUNT 5.7 K/mm3 (4.0-10.0)
[2023-06-15 17:59] LABS: INR 1.07 (0.83-1.09); PROTHROMBIN TIME (PATIENT) 12.4 SEC (9.7-13.0)
[2023-06-15] MEDS ORDERED: ACETAMINOPHEN 1000 MG/100 ML BAG IVPB ONE (18:00)
[2023-06-15 18:02] LABS: ACTIVATED PTT 29.1 SECONDS (25.2-36.5)
[2023-06-15] MEDS ORDERED: ACETAMINOPHEN INJECTION 100 ML IVPB ONE (18:02)
[2023-06-15 18:12] LABS: POTASSIUM 4.3 mmol/L (3.5-5.1)
[2023-06-15 18:15] LABS: ALBUMIN 3.5 g/dl (3.4-5.0); BLOOD UREA NITROGEN 22.9 mg/dL (7-18)
[2023-06-15 18:18] LABS: CREATININE 1.2 mg/dL (0.55-1.3)
[2023-06-15 18:20] LABS: BILIRUBIN,TOTAL 0.5 mg/dL (0.2-1); TOT PROT 6.2 g/dl (6.4-8.2)
[2023-06-16 02:56] VITALS: BMI 31.4
[2023-06-16] MEDS ORDERED: ACETAMINOPHEN 325 MG TABLET (FP) PO ONE (03:09)
[2023-06-16] MEDS: INSULIN SLIDING SCALE (NOVOLOG) 1 VIAL SQ SCH ×3 (06:30→16:45)
[2023-06-16 08:31] LABS: BASO % 0.5 % (0-2.0); EOS % 4.8 % (0-4.5); HEMATOCRIT 30.3 % (32.4-45.2); HEMOGLOBIN 10.2 GM/dL (10.7-15.3); LYMPH % 37.4 % (8-40); MCHC 33.6 g/dl (32.0-36.0); MEAN CELL VOLUME 89.1 fl (80-96); MEAN PLT VOLUME 7.4 fl (7.5-11.1); NEUT % 45.3 % (42.8-82.8); PLATELET COUNT 299 10^3/uL (134-434); RBC 3.39 M/mm3 (3.60-5.2); RDW 14.1 % (11.6-15.6); WHITE BLOOD COUNT 4.8 K/mm3 (4.0-10.0)
[2023-06-16 08:55] LABS: POTASSIUM 3.9 mmol/L (3.5-5.1)
[2023-06-16] MEDS ORDERED: RANOLAZINE E.R. 500 MG TABLET (FP) ONE (09:06)
[2023-06-16 09:07] LABS: ALBUMIN 3.2 g/dl (3.4-5.0); BLOOD UREA NITROGEN 22.8 mg/dL (7-18); CALCIUM 8.6 mg/dL (8.5-10.1); PHOSPHOROUS 4.6 mg/dL (2.5-4.9)
[2023-06-16 09:08] LABS: MAGNESIUM 1.9 mg/dL (1.8-2.4)
[2023-06-16 09:09] LABS: TOT PROT 5.7 g/dl (6.4-8.2)
[2023-06-16 09:10] LABS: BILIRUBIN,TOTAL 0.8 mg/dL (0.2-1)
[2023-06-16] MEDS ORDERED: APIXABAN 5 MG TABLET PO SCH (10:00)
[2023-06-16] MEDS ORDERED: metoPROLOL SUCCINATE 25 MG TAB.SR.24H (FP) PO SCH (10:00)
[2023-06-16] MEDS ORDERED: RANOLAZINE E.R. 1,000 MG TABLET (FP) PO SCH (10:00)
[2023-06-16] MEDS ORDERED: EZETIMIBE 10 MG TABLET (FP) PO SCH (10:00)
[2023-06-16] MEDS ORDERED: LEVOTHYROXINE NA 200 MCG TABLET PO SCH (10:00)
[2023-06-16] MEDS ORDERED: LEVOTHYROXINE PO SCH (10:00)
[2023-06-16] MEDS ORDERED: TOPIRAMATE 25 MG TABLET PO SCH (11:00)
[2023-06-16] MEDS ORDERED: PANTOPRAZOLE 40 MG TABLET PO ONE (12:03)
[2023-06-16] MEDS ORDERED: ACETAMINOPHEN 325 MG TABLET (FP) PO PRN (15:34)
[2023-06-16 18:26] VITALS: BP 107/56; PULSE 70; RESP 18; TEMP 98.6
[2023-06-16] MEDS ORDERED: ATORVASTATIN CA 80 MG TABLET (FP) PO SCH (22:00)
[2023-06-16] MEDS ORDERED: ATORVASTATIN CA 40 MG TABLET (FP) PO SCH (22:00)
== END 2023-06-16 18:50 | disposition home or self-care (01) ==
LOC: JER 15:46 → UNDOADMOB 18:36 → JERBED 18:36 → J4W 06-16 02:42 → JERBED 06-16 02:42 → J4W 06-16 11:06 → JERBED 06-16 11:06
PROVIDERS: ADMIT Internal Medicine; ATTEND Internal Medicine
PROC: 3E033NZ Introduction of Analgesics, Hypnotics, Sedatives into Peripheral Vein, Percutaneous Approach (ICD-10-PCS; principal; 2023-06-16)
DX: K21.9 Gastro-esophageal reflux disease without esophagitis (principal); K29.70 Gastritis, unspecified, without bleeding; R07.89 Other chest pain; I25.10 Atherosclerotic heart disease of native coronary artery without angina pectoris; Z91.013 Allergy to seafood; J30.2 Other seasonal allergic rhinitis; Z90.89 Acquired absence of other organs; E78.5 Hyperlipidemia, unspecified; E11.9 Type 2 diabetes mellitus without complications; Z95.5 Presence of coronary angioplasty implant and graft; I10 Essential (primary) hypertension; I25.2 Old myocardial infarction
CPT/HCPCS: 36415; 71045-TC-FY; 80053; 80061; 82728; 82962; 83540; 83550; 83735; 84100; 84439; 84443; 84466; 84481; 84484; 85025; 85045; 85610; 85730; 93005; 93010; 93306-TC; 96374; 99285-25; G0378

== ENCOUNTER 2024-08-09 15:24 | Emergency (ER) | payer OTHER ==
[2024-08-09 15:28] VITALS: RESP 18; TEMP 97.6; BMI 32.8
[2024-08-09] MEDS: MAG HYDROX/AL HYDROX/SIMETH 30 ML UNIT-DOSE CUP PO ONE (16:10)
[2024-08-09] MEDS ORDERED: ACETAMINOPHEN INJECTION 100 ML ONE (16:27)
[2024-08-09] MEDS ORDERED: MAG HYDROX/AL HYDROX/SIMETH 30 ML UNIT-DOSE CUP ONE (16:28)
[2024-08-09 16:40] LABS: BASO % 0.8 % (0-2.0); EOS % 5.4 % (0-4.5); HEMATOCRIT 35.5 % (32.4-45.2); HEMOGLOBIN 11.8 GM/dL (10.7-15.3); LYMPH % 42.9 % (8-40); MCH 29.4 pg (25.7-33.7); MCHC 33.2 g/dl (32.0-36.0); MEAN CELL VOLUME 88.6 fl (80-96); MEAN PLT VOLUME 7.4 fl (7.5-11.1); MONO % 7.8 % (3.8-10.2); NEUT % 43.1 % (42.8-82.8); PLATELET COUNT 300 10^3/uL (134-434); RBC 4.01 M/mm3 (3.60-5.2); RDW 14.1 % (11.6-15.6); WHITE BLOOD COUNT 7.4 K/mm3 (4.0-10.0)
[2024-08-09] MEDS: ACETAMINOPHEN 1000 MG/100 ML BAG IVPB ONE (16:43)
[2024-08-09 17:08] LABS: POTASSIUM 4.1 mmol/L (3.5-5.1)
[2024-08-09 17:11] LABS: ALBUMIN 3.7 g/dl (3.4-5.0); BLOOD UREA NITROGEN 18.7 mg/dL (7-18)
[2024-08-09 17:14] LABS: CREATININE 1.1 mg/dL (0.55-1.3)
[2024-08-09 17:15] LABS: BILIRUBIN,TOTAL 0.5 mg/dL (0.2-1); TOT PROT 6.7 g/dl (6.4-8.2)
[2024-08-09 19:16] VITALS: BP 130/69; PULSE 59
== END 2024-08-09 20:15 | disposition home or self-care (01) ==
LOC: JER 15:24
PROC: 3E033NZ Introduction of Analgesics, Hypnotics, Sedatives into Peripheral Vein, Percutaneous Approach (ICD-10-PCS; principal; 2024-08-09)
DX: R07.2 Precordial pain (principal); R06.02 Shortness of breath; R42 Dizziness and giddiness; R51.9 Headache, unspecified; R53.81 Other malaise
CPT/HCPCS: 36415; 71045-TC-FY; 80053; 84484; 85025; 93005; 93010; 99285-25; J0131

== ENCOUNTER → 2024-09-25 | Day surgery (SDC) | payer OTHER ==
[2024-09-25 12:24] LABS: CHLORIDE 109 mmol/L (98-107); POTASSIUM 4.3 mmol/L (3.5-5.1); SODIUM 142 mmol/L (136-145)
[2024-09-25 12:27] LABS: ALBUMIN 3.9 g/dl (3.4-5.0); ANION GAP 5 mmol/L (4-13); CALCIUM 9.3 mg/dL (8.5-10.1); CO2 27 mmol/L (21-32); GLUCOSE,RANDOM 98 mg/dL (74-106)
[2024-09-25 12:28] LABS: BLOOD UREA NITROGEN 13.4 mg/dL (7-18)
[2024-09-25 12:30] LABS: CHOLESTEROL 362 mg/dL (50-200); SGOT/AST 17 U/L (15-37); SGPT/ALT 25 U/L (13-61)
[2024-09-25 12:31] LABS: CREATININE 0.9 mg/dL (0.55-1.3); LDL CHOLESTEROL (ONLY SJRH) 237 mg/dL (5-100)
[2024-09-25 12:32] LABS: BILIRUBIN,TOTAL 0.4 mg/dL (0.2-1)
[2024-09-25 12:33] LABS: ALK PHOS 105 U/L (45-117); HDL CHOLESTEROL 55 mg/dL (40-60)
== END | disposition home or self-care (01) ==
LOC: JRADIR 08:35
PROVIDERS: ATTEND Internal Medicine Endocrinology, Diabetes & Metabolism
PROC: 0G9G3ZX Drainage of Left Thyroid Gland Lobe, Percutaneous Approach, Diagnostic (ICD-10-PCS; principal; 2024-09-25)
DX: E04.1 Nontoxic single thyroid nodule (principal)
CPT/HCPCS: 10005; 36415; 76942; 80053; 80061; 83036; 84443; 88173; 88305-TC